=== PATIENT | male | born 1975 | race Caucasian/White ===

== ENCOUNTER 2017-12-03 08:51 | Observation (INO) ==
[2017-12-03] MEDS ORDERED: *HR* Promethazine 25 MG/ML VIAL IVP ONE ×2 (09:22→10:06)
[2017-12-03] MEDS ORDERED: *HR* FentaNYL (PF) 100 MCG/2 ML VIAL IVP ONE (09:22)
[2017-12-03] MEDS ORDERED: 0.9 % Sodium Chloride 1,000 ML IVC ONE (09:22)
--- NOTE | 2017-12-03 09:34 | Emergency Department Note ---
Disposition Clinical Impression: Pancreatitis Qualifiers: Chronicity: acute Pancreatitis type: unspecified pancreatitis type Acute pancreatitis complication: no infection or necrosis Qualified Code(s): K85.90 - Acute pancreatitis without necrosis or infection, unspecified Disposition: Admitted As Inpatient Condition: Fair Referrals: NONE,PCP [Primary Care Provider] - Time of Disposition: 09:34 General Adult HPI - General Chief complaint: ED Nausea/Vomiting/Diarrhea Stated complaint: n/v,abd pain Time Seen by Provider: 12/03/17 09:10 Source: patient Limitations: no limitations Nursing Notes Reviewed: Yes Vital Signs Reviewed: Yes - History of Present Illness Pain Scale: 4 - Related Data Previous Rx's Medication Instructions Recorded Promethazine [Phenergan] 12.5 mg PO Q8HR PRN 3 Days #9 12/03/17 tablet Allergies Allergy/AdvReac Type Severity Reaction Status Date / Time ondansetron Allergy Nausea Verified 12/03/17 00:27 Past Medical History - Past Medical History Medical history: Reports: hypertension, other Psychiatric history: Reports: anxiety, bipolar, depression, prior suicide attempt, schizophrenia - Social History Smoking Status: Current every day smoker Smokeless Tobacco Status: No Alcohol use: Reports: occasionally Drug use: Reports: marijuana Physical Exam - General Limitations: no limitations General appearance: alert Course - Reevaluation(s) Reevaluation #1: Attestation note I did independently examine and verified the physical examination findings evaluation workup and disposition of this patient. We had independent face-to- face examination and discussion. The patient was seen with the emergency medicine resident Dr. Noble Worrell I examined this patient and my medical decision-making was reviewed with the Resident Physician/LAW RESEARCHER/PA. I agree with the documented findings, disposition and treatment plan as described except to the extent set forth below. Briefly: 41-year-old male discharge for possibly 5 AM this morning after Dr. Harvey evaluated worked up and discharge this patient for acute pancreatitis. Patient does have one remaining kidney since he donated to her family member in the past. Lab works were essentially within normal limits and abdominal pelvic CT with radiology was no acute process. Patient's symptoms were controlled at that time and he was sent out to the lobby. He slept for a few hours and when he woke recurrence of epigastric pain nausea and vomiting. Patient will be rehydrated given IV Phenergan repeat BMP and that admitted for acute pancreatitis with intractable nausea and vomiting. Time: 09:32 Vital Signs Temperature 98.1 F 12/03/17 09:04 Pulse Rate 57 12/03/17 09:04 Respiratory Rate 18 12/03/17 09:04 Blood Pressure 190/110 12/03/17 09:04 O2 Sat by Pulse Oximetry 97 12/03/17 09:04 Temperature 98.1 F 12/03/17 09:04 Pulse Rate 57 12/03/17 09:04 Respiratory Rate 18 12/03/17 09:04 Blood Pressure 190/110 12/03/17 09:04 O2 Sat by Pulse Oximetry 97 12/03/17 09:04 Oxygen Delivery Oxygen Delivery Room Air Medical Decision Making - Lab Data Lab Results 12/03/17 Range/Units 09:14 POC Glucose 133 H (68-89) mg/dL
--- NOTE | 2017-12-03 09:39 | Emergency Department Note ---
Disposition Clinical Impression: Abdominal pain Qualifiers: Abdominal location: left lower quadrant Qualified Code(s): R10.32 - Left lower quadrant pain Nausea and vomiting Qualifiers: Vomiting type: unspecified Vomiting Intractability: non-intractable Qualified Code(s): R11.2 - Nausea with vomiting, unspecified Pancreatitis Qualifiers: Chronicity: chronic Pancreatitis type: unspecified pancreatitis type Qualified Code(s): K86.1 - Other chronic pancreatitis Disposition: Admitted As Inpatient Condition: Fair Time of Disposition: 11:02 Nausea/Vomiting/Diarrhea HPI - General Chief complaint: ED Nausea/Vomiting/Diarrhea Stated complaint: n/v,abd pain Time Seen by Provider: 12/03/17 09:10 Source: patient Limitations: no limitations Nursing Notes Reviewed: Yes Vital Signs Reviewed: Yes - History of Present Illness HPI Narrative: 41-year-old male complains of nausea and vomiting is one day ago. Patient stated he thinks he had pancreatitis and came in for evaluation. Patient was seen in the past 6 hours and had a complete workup to assess for pancreatitis which showed no elevation of his pancreatic enzymes and had a CT scan abdomen and pelvis was negative. Patient was discharged after control of his nausea and pain. Patient stayed in the waiting room over the past 6 hours awoke and symptoms persisted. Patient has sharp piercing intermittent abdominal pain along the left flank with radiation to his groin that when exacerbated causes him to vomit. Patient has nonbloody emesis. Patient has a history of nephrectomy back in 2002. Patient currently only has his left kidney. The patient is status post colectomy in 2002. Last abdominal surgery in June last year - Related Data Previous Rx's Medication Instructions Recorded Promethazine [Phenergan] 12.5 mg PO Q8HR PRN 3 Days #9 12/03/17 tablet Allergies Allergy/AdvReac Type Severity Reaction Status Date / Time ondansetron Allergy Nausea Verified 12/03/17 00:27 All systems ED: reviewed and negative except as stated. Review of Systems: As Per HPI Constitutional: Reports: chills, weakness. Denies: fever Gastrointestinal: Reports: abdominal pain, nausea, vomiting Endocrine: Reports: fatigue Past Medical History - Past Medical History Attestation: Yes The following information was validated with the patient. Source: patient, nursing notes reviewed Medical history: Reports: hypertension, other Psychiatric history: Reports: anxiety, bipolar, depression, prior suicide attempt, schizophrenia - Social History Smoking Status: Current every day smoker Smokeless Tobacco Status: No Alcohol use: Reports: occasionally Drug use: Reports: marijuana Physical Exam Vital Signs Temperature 98.1 F 12/03/17 09:04 Pulse Rate 57 12/03/17 09:04 Respiratory Rate 18 12/03/17 09:04 Blood Pressure 190/110 12/03/17 09:04 O2 Sat by Pulse Oximetry 97 12/03/17 09:04 Temperature 98.1 F 12/03/17 09:04 Pulse Rate 57 12/03/17 09:04 Respiratory Rate 18 12/03/17 09:04 Blood Pressure 190/110 12/03/17 09:04 O2 Sat by Pulse Oximetry 97 12/03/17 09:04 Oxygen Delivery Oxygen Delivery Room Air CONSTITUTIONAL: Alert and oriented X3, poorly nourished and in acute distress. Vital signs show hypertension at 190/110 HEAD: Normocephalic; atraumatic. EYES: PERRL, no scleral icterus. NOSE: The nose is normal in appearance without rhinorrhea RESP: Normal chest excursion with respiration; breath sounds clear and equal bilaterally; no wheezes, rhonchi, or rales CARD: Regular rhythm, without murmurs, rub or gallop ABD: Non-distended; tender in epigastric, left upper quadrant left flank to palpation. Palpation stimulates emesis Back: Left CVA tenderness to palpation SKIN: Normal for age and race; warm and dry; no apparent lesions - General Limitations: no limitations General appearance: alert Course - Reevaluation(s) Reevaluation #1: Patient states his nausea is still pretty strong. reordered Phenergan 12.5 mg IV Time: 10:04 - Consultations Consultation #1: Dr. Rolle the hospitalist has accepted patient for admission Time: 10:31 Vital Signs Temperature 98.1 F 12/03/17 09:04 Pulse Rate 57 12/03/17 09:04 Respiratory Rate 18 12/03/17 09:04 Blood Pressure 190/110 12/03/17 09:04 O2 Sat by Pulse Oximetry 97 12/03/17 09:04 Temperature 98.1 F 12/03/17 09:04 Pulse Rate 57 12/03/17 09:04 Respiratory Rate 18 12/03/17 09:04 Blood Pressure 190/110 12/03/17 09:04 O2 Sat by Pulse Oximetry 97 12/03/17 09:04 Oxygen Delivery Oxygen Delivery Room Air Nausea/Vomiting/Diarrhea - MDM Narrative Medical decision making narrative: Patient presents after outpatient failure for treatment of nausea and vomiting and abdominal pain that was evaluated for suspected pancreatitis. After a negative evaluation for pancreatitis patient was discharged but has recurrence of symptoms. Patient's abdominal pain is worsened current plan is to rehydrate , control nausea and pain, and admits for outpatient failure for suspected chronic pancreatitis. 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 Labs were redrawn for comparison. Patient was accepted for admission by hospitalist Dr. Rolle. - Lab Data Lab results reviewed: Yes I reviewed the patient's lab results. Lab results narrative: Short CBC 12/03/17 Range/Units 09:37 WBC 18.2 H (4.3-11.1) K/mcL Hgb 19.3 H (12.9-16.9) g/dL Hct 55.7 H (37.5-50.1) % Plt Count 218 (140-400) K/mcL Neutrophils # 15.9 H (1.6-8.9) K/mcL Result diagrams: 12/03/17 09:37 Lab Results 12/03/17 12/03/17 12/03/17 Range/Units 09:14 09:37 09:37 WBC 18.2 H (4.3-11.1) K/mcL RBC 6.24 H (4.19-5.50) M/mcL Hgb 19.3 H (12.9-16.9) g/dL Hct 55.7 H (37.5-50.1) % MCV 89.3 (83.0-100.0) fL MCH 30.9 (28.0-33.3) pg MCHC 34.6 (31.6-35.5) g/dL RDW 12.4 (11.5-14.5) % Plt Count 218 (140-400) K/mcL MPV 11.5 (9.4-12.4) fL Immature Gran % 0.7 (0-4) % Seg Neutrophils % 87.1 % Lymphocytes % 8.2 % Monocytes % 3.7 % Eosinophils % 0.1 % Basophils % 0.2 % Neutrophils # 15.9 H (1.6-8.9) K/mcL Lymphocytes # 1.5 (0.6-4.6) K/mcL Monocytes # 0.7 (0.0-1.3) K/mcL Eosinophils # 0.0 (0.0-0.6) K/mcL Basophils # 0.0 (0.0-0.2) K/mcL POC Glucose 133 H (68-89) mg/dL Specimen Rejected Hemolyzed - Radiology Data Radiology results reviewed: Yes I reviewed the patient's radiology results.
[2017-12-03 09:45] LABS: Basophils % 0.2 %; Eosinophils % 0.1 %; Hemoglobin 19.3 g/dL (12.9-16.9); Immature Granulocytes % 0.7 % (0-4); Lymphocytes # 1.5 K/mcL (0.6-4.6); Lymphocytes % 8.2 %; Mean Corpuscular HGB Conc 34.6 g/dL (31.6-35.5); Mean Corpuscular Hemoglobin 30.9 pg (28.0-33.3); Mean Corpuscular Volume 89.3 fL (83.0-100.0); Mean Platelet Volume 11.5 fL (9.4-12.4); Monocytes # 0.7 K/mcL (0.0-1.3); Monocytes % 3.7 %; Neutrophils # 15.9 K/mcL (1.6-8.9); Platelet Count 218 K/mcL (140-400); Red Blood Count 6.24 M/mcL (4.19-5.50); Red Cell Distribution Width 12.4 % (11.5-14.5); Segmented Neutrophils % 87.1 %
[2017-12-03 09:49] LABS: Hematocrit 55.7 % (37.5-50.1)
[2017-12-03 11:45] LABS: BUN/Creatinine Ratio 10 (6-26); Blood Urea Nitrogen 9 mg/dL (6-20); Calcium 9.2 mg/dL (8.6-10.3); Carbon Dioxide 22 mEq/L (23-29); Chloride 106 mEq/L (98-107); Glucose 135 mg/dL (70-105); Osmolality,Calculated 283 (280-300); Potassium 4.4 mEq/L (3.5-5.1); Sodium 136 mEq/L (136-145); eGFR For African Americans > 60 (> 60); eGFR For Non-African Americans > 60 (> 60)
[2017-12-03] MEDS: 0.9 % Sodium Chloride 1,000 ML IVC SCH (12:29)
--- NOTE | 2017-12-03 12:33 | Internal Med History&Physical ---
Date of Encounter: 12/03/17 Time of Encounter: 11:00 Assessment and Plan (1) Abdominal pain Current visit: Yes Status: Acute Patient complains of abdominal pain but no abnormal findings on abdominal CT and transaminases/lipase within normal limits Will continue to monitor Qualifiers: Abdominal location: unspecified location Qualified Code(s): R10.9 - Unspecified abdominal pain (2) Nausea and vomiting Current visit: Yes Status: Acute Will give patient antiemetics as needed Qualifiers: Vomiting type: unspecified Vomiting Intractability: non-intractable Qualified Code(s): R11.2 - Nausea with vomiting, unspecified (3) DVT prophylaxis Current visit: Yes Status: Acute Subcutaneous heparin Internal Medicine - H&P: HPI Chief complaint: Abdominal pain/nausea/vomiting Admitted From: Home Plans for Post Hospital Care: Home History of present illness: Patient is a 41-year-old male who presents to the ER on 12/03/17 due to abdominal pain and nausea/vomiting. Patient is a poor historian and does not want to participate in the history taking but does state that he has had nausea/vomiting and abdominal pain for last couple days. In the ER, CT abdomen did not show any acute findings and laboratory findings unremarkable. Patient was admitted to medical surgical floor for nausea and vomiting and abdominal pain. Past Med Surg Social Fam HX - Past Medical History Medical history: hypertension, other Psychiatric history: anxiety, bipolar, depression, prior suicide attempt, schizophrenia - Past Surgical History Surgical History: non-contributory - Social History Smoking Status: Current every day smoker Smokeless Tobacco Status: No Alcohol use: occasionally Drug use: marijuana Internal Medicine - H&P: Meds Promethazine [Phenergan] 12.5 mg PO Q8HR PRN 3 Days #9 tablet 12/03/17 [Rx] 3 Allergy/AdvReac Type Severity Reaction Status Date / Time ondansetron Allergy Nausea Verified 12/03/17 00:27 All Systems PM: A 10-system review of systems was performed and is negative for pertinent findings except as documented above in the HPI. - Constitutional Vitals: Temp Pulse Resp BP Pulse Ox 98.3 F 77 16 185/109 98 12/03/17 12:01 12/03/17 12:01 12/03/17 12:01 12/03/17 12:01 12/03/17 12:01 General appearance: Present: no acute distress - Eye Eye exam: Present: normal appearance - ENT ENT exam: Present: mucous membranes moist - Respiratory Respiratory exam: Present: CTAB. Absent: accessory muscle use, rales, rhonchi, wheezes - Cardiovascular Cardiovascular exam: Present: RRR, +S1, +S2. Absent: diastolic murmur, gallop, rubs, systolic murmur - GI/Abdominal GI/Abdominal exam: Present: normal bowel sounds, soft, no peritoneal signs. Absent: distended, tenderness - Extremities Exam Extremities exam: Absent: pedal edema - Neurological Exam Neurological exam: Present: no focal deficits - Psychiatric Psychiatric exam: Present: normal mood - Skin Skin exam: Present: normal color Internal Med - H&P Results - Labs CBC & Chem 7: 12/03/17 09:37 12/03/17 11:13 Labs: BMP 12/03/17 11:13 Sodium 136 Potassium 4.4 D Chloride 106 Carbon Dioxide 22 L BUN 9 Creatinine 0.89 Glucose 135 H Calcium 9.2
[2017-12-03] MEDS ORDERED: Naloxone 0.4 MG/ML INJ IVP PRN (12:57)
[2017-12-03] MEDS ORDERED: Ketorolac 15 MG/ML VIAL IVP ONE (15:46)
[2017-12-03] MEDS: MetroNIDAZOLE 500 MG/100 ML 500 MG/100 ML BAG IVPB SCH (15:51)
[2017-12-03] MEDS: *HR* Promethazine 25 MG/ML VIAL IVP PRN (16:55)
[2017-12-03] MEDS ORDERED: Ondansetron 4 MG/2 ML VIAL IVP ONE (20:24)
[2017-12-03] MEDS ORDERED: Acetaminophen IV 500 MG/50 ML INFUS..BTL IVPB ONE (20:33)
[2017-12-04] MEDS ORDERED: Ketorolac 15 MG/ML VIAL IVP PRN (01:02)
[2017-12-04] MEDS: MetroNIDAZOLE 500 MG/100 ML 500 MG/100 ML BAG IVPB SCH ×3 (01:27→23:14)
[2017-12-04 01:59] LABS: Amphetamine Screen,Urine Negative ng/mL (Cutoff=1000); Barbiturate Screen,Urine Negative ng/mL (Cutoff=200); Benzodiazepines Screen,Urine Negative ng/mL (Cutoff=200); Cannabinoid Screen,Urine Positive ng/mL (Cutoff = 50); Opiate Screen,Urine Negative ng/mL (Cutoff=300); Phencyclidine Screen,Urine Negative ng/mL (Cutoff=25)
[2017-12-04 02:58] LABS: Cocaine Screen,Urine Negative ng/mL (Cutoff= 300)
[2017-12-04 06:13] LABS: Basophils % 0.2 %; Immature Granulocytes % 0.9 % (0-4)
[2017-12-04 06:14] LABS: Basophils # 0.1 K/mcL (0.0-0.2); Eosinophils % 0.1 %; Hemoglobin 19.5 g/dL (12.9-16.9); Lymphocytes # 2.5 K/mcL (0.6-4.6); Lymphocytes % 7.9 %; Mean Corpuscular HGB Conc 34.8 g/dL (31.6-35.5); Mean Corpuscular Hemoglobin 30.8 pg (28.0-33.3); Mean Corpuscular Volume 88.5 fL (83.0-100.0); Mean Platelet Volume 11.3 fL (9.4-12.4); Monocytes # 2.5 K/mcL (0.0-1.3); Monocytes % 7.8 %; Neutrophils # 26.7 K/mcL (1.6-8.9); Platelet Count 228 K/mcL (140-400); Red Blood Count 6.33 M/mcL (4.19-5.50); Red Cell Distribution Width 13.3 % (11.5-14.5); Segmented Neutrophils % 83.1 %
[2017-12-04 06:31] LABS: Platelet Estimate Normal (Normal)
[2017-12-04 06:39] LABS: BUN/Creatinine Ratio 13 (6-26); Blood Urea Nitrogen 15 mg/dL (6-20); Calcium 9.5 mg/dL (8.6-10.3); Carbon Dioxide 26 mEq/L (23-29); Chloride 100 mEq/L (98-107); Glucose 148 mg/dL (70-105); Osmolality,Calculated 292 (280-300); Potassium 3.1 mEq/L (3.5-5.1); Sodium 139 mEq/L (136-145); eGFR For African Americans > 60 (> 60); eGFR For Non-African Americans > 60 (> 60)
[2017-12-04] MEDS: OXYCODONE Oral CONC 10 MG/0.5 ML ORAL.SYG SL PRN ×2 (12:26→21:56)
[2017-12-04] MEDS: 0.9 % Sodium Chloride 1,000 ML IVC SCH (13:41)
--- NOTE | 2017-12-04 16:56 | Internal Med Progress Note ---
Date of Encounter: 12/04/17 Time of Encounter: 17:03 - Assessment and plan (1) Pancreatitis Current Visit: Yes Status: Acute Assessment and plan: possible. Presented with abdominal pain and nausea vomiting. Was evaluated in the ED and discharged home however he returned proximal Lasix hour later with persistent symptoms. Reports history of pancreatitis in the past and symptoms consistent with previous episodes of pancreatitis. LFTs minimally elevated. Lipase, amylase normal. Abdominal CT with no acute process identified. Keep NPO , IV fluids, pain control. ABD US pending Qualifiers: Chronicity: chronic Pancreatitis type: alcohol induced Qualified Code(s) : K86.0 - Alcohol-induced chronic pancreatitis (2) Leukocytosis Current Visit: Yes Status: Acute Assessment and plan: WBC 32K, previously 18K. no obvious infectious source. UA not indicative of UTI , abdominal CT unremarkable. Chest x-ray without evidence of pneumonia. lactic acid normal, no hypotension, intermittent tachycardia. Possibly reactive with nausea and vomiting. IV Cipro and Flagyl started with concern for intra-abdominal source as the patient reported nausea, vomiting and diarrhea. Broaden antibiotic to Vanco, Zosyn. Blood cultures pending. Qualifiers: Leukocytosis type: bandemia Qualified Code(s): D72.825 - Bandemia (3) Abdominal pain Current Visit: Yes Status: Acute Assessment and plan: presented with abdominal pain as noted above but no abnormal findings on abdominal CT. Transaminases/lipase within normal limits. With c/o sharp, piercing ABD pain on 12/04/17 exam, also noted to be tachycardic. Chest/ABD CTA with run off pending Qualifiers: Abdominal location: unspecified location Qualified Code(s): R10.9 - Unspecified abdominal pain (4) Nausea and vomiting Current Visit: Yes Status: Acute Assessment and plan: with associated abdominal pain. Keep NPO, PRN antiemetics. Qualifiers: Vomiting type: unspecified Vomiting Intractability: non-intractable Qualified Code(s): R11.2 - Nausea with vomiting, unspecified (5) DVT prophylaxis Current Visit: Yes Status: Acute Assessment and plan: heparin - Subjective Interval history: Seen and examined at bedside, patient is new to me. Information obtained from chart review and patient report. Appears extremely uncomfortable on exam. Complaining of 10 out of 10 abdominal pain located to left upper quadrant and radiates to left groin. Still nauseated but no further emesis or loose stool. - Constitutional Vitals: Temp Pulse Resp BP Pulse Ox 97.9 F 108 16 127/89 93 12/04/17 15:22 12/04/17 15:22 12/04/17 15:22 12/04/17 15:22 12/04/17 15:22 General appearance: Present: mild distress, A&O X 3, no acute distress - Head Head exam: Present: atraumatic, normocephalic - Eye Eye exam: Present: PERRL, conjuntiva pink, sclera anicteric Pupils: Present: PERRL - Neck Neck exam general surgery: Present: supple, trachea midline. Absent: lymphadenopathy - Respiratory Respiratory exam: Present: CTAB. Absent: accessory muscle use, rales, rhonchi, wheezes - Cardiovascular Cardiovascular exam: Present: RRR, +S1, +S2. Absent: diastolic murmur, gallop, rubs, systolic murmur - GI/Abdominal GI/Abdominal exam: Present: normal bowel sounds, soft, tenderness, no peritoneal signs. Absent: distended - Extremities Exam Extremities exam: Present: warm, radial pulses palpable and symmetrical. Absent : calf tenderness, cyanotic, pedal edema - Neurological Exam Neurological exam: Present: CN II-XII intact, oriented X3, no focal deficits. Absent: pronater drift, facial droop, speech deficit - Skin Skin exam: Present: dry, intact Internal Medicine: Result - Labs CBC & Chem 7: 12/04/17 05:15 12/04/17 05:15 Labs: Short CBC 12/04/17 Range/Units 05:15 WBC 32.1 H* D (4.3-11.1) K/mcL Hgb 19.5 H (12.9-16.9) g/dL Hct 56.0 H (37.5-50.1) % Plt Count 228 (140-400) K/mcL Neutrophils # 26.7 H (1.6-8.9) K/mcL BMP 12/04/17 05:15 Sodium 139 Potassium 3.1 L D Chloride 100 Carbon Dioxide 26 BUN 15 Creatinine 1.15 Glucose 148 H Calcium 9.5 Consult Discharge Plan - Plan Referrals: NONE,PCP [Primary Care Provider] -
[2017-12-04] MEDS ORDERED: Potassium Chloride 40 MEQ, Lidocaine 1% 2 ML in D5% in Water 500 ML IVPB ONE (17:04)
[2017-12-04] MEDS: Piperacillin/Tazobactam 3.375 GM in 0.9 % Sodium Chloride Mini Bag 100 ML IVPB SCH (17:24)
[2017-12-04 18:27] LABS: Adenovirus Not Detected (Not Detect); Bordetella Pertussis Not Detected (Not Detect); Chlamydophila pneumoniae Not Detected (Not Detect); Coronavirus 229E Not Detected (Not Detect); Coronavirus HKU1 Not Detected (Not Detect); Coronavirus NL63 Not Detected (Not Detect); Coronavirus OC43 Not Detected (Not Detect); Human Metapneumovirus Not Detected (Not Detect); Human Rhinovirus/Enterovirus Not Detected (Not Detect); Influenza A Subtype 2009 H1 Not Detected (Not Detect); Influenza A Untypeable Not Detected (Not Detect); Influenza B Not Detected (Not Detect); Mycoplasma pneumoniae Not Detected (Not Detect); Parainfluenza Virus 1 Not Detected (Not Detect); Parainfluenza Virus 2 Not Detected (Not Detect); Parainfluenza Virus 3 Not Detected (Not Detect); Parainfluenza Virus 4 Not Detected (Not Detect); Respiratory Syncytial Virus Not Detected (Not Detect)
[2017-12-04] MEDS ORDERED: Potassium Chloride Elixir 20 MEQ/15 ML UDC PO ONE (20:33)
[2017-12-04] MEDS: *HR* Heparin 5,000 UNIT/ML VIAL SQ SCH (21:44)
[2017-12-04] MEDS: *HR* Promethazine 25 MG/ML VIAL IVP PRN (23:26)
[2017-12-04] MEDS: *HR* FentaNYL (PF) 100 MCG/2 ML VIAL IVP PRN (23:38)
[2017-12-05] MEDS: Piperacillin/Tazobactam 3.375 GM in 0.9 % Sodium Chloride Mini Bag 100 ML IVPB SCH ×3 (01:41→17:38)
[2017-12-05] MEDS: *HR* FentaNYL (PF) 100 MCG/2 ML VIAL IVP PRN (02:21)
[2017-12-05 04:43] LABS: Mean Corpuscular HGB Conc 34.1 g/dL (31.6-35.5)
[2017-12-05 04:44] LABS: Hematocrit 53.6 % (37.5-50.1); Hemoglobin 18.3 g/dL (12.9-16.9); Mean Corpuscular Hemoglobin 30.7 pg (28.0-33.3); Mean Corpuscular Volume 89.9 fL (83.0-100.0); Mean Platelet Volume 11.3 fL (9.4-12.4); Platelet Count 181 K/mcL (140-400); Red Blood Count 5.96 M/mcL (4.19-5.50); Red Cell Distribution Width 12.8 % (11.5-14.5)
[2017-12-05 05:41] LABS: BUN/Creatinine Ratio 14 (6-26); Blood Urea Nitrogen 14 mg/dL (6-20); Calcium 9.2 mg/dL (8.6-10.3); Carbon Dioxide 23 mEq/L (23-29); Chloride 106 mEq/L (98-107); Glucose 135 mg/dL (70-105); Osmolality,Calculated 285 (280-300); Sodium 136 mEq/L (136-145); Triglycerides 85 mg/dL (< 150); eGFR For African Americans > 60 (> 60); eGFR For Non-African Americans > 60 (> 60)
[2017-12-05] MEDS: 0.9 % Sodium Chloride 1,000 ML IVC SCH ×2 (06:25→06:26)
[2017-12-05] MEDS: *HR* Heparin 5,000 UNIT/ML VIAL SQ SCH ×3 (08:49→21:44)
[2017-12-05] MEDS: OXYCODONE Oral CONC 10 MG/0.5 ML ORAL.SYG SL PRN ×2 (12:06→20:02)
--- NOTE | 2017-12-05 12:23 | Event Note ---
Date of Encounter: 12/04/17 Time of Encounter: 20:30 Alerted by patient's nurse that patient was supposed to be receiving IV potassium 40 mEq w/lidocaine and that pt. was refusing to continue w/infusion d/ t extreme pain and burning in arm from potassium. Pt. admittted w/possible pancreatitis and was NPO. Pt. reported he was not nauseous or vomiting, so PO Potassium liquid 40 mEq ordered. and administered. Alerted by nurse at 23:06 of critical lab result of 0.04 troponin. EKG done which showed sinus rhythm with short TX interval and right atrial enlargement. Ordered d-dimer also returned at 3233. CT of chest done earlier in the day which showed no abnormality or suspicion of PE. Bilateral Dopplers of patient's LEs ordered. Went to see pt. who was reporting pain in his back and chest. Echocardiogram ordered. Order to continue trending trops given. Cardiac monitoring ordered. Stat EKG showed sinus rhythm. Second trop 0.04. Hydralazine IVP 10 mg Q6HR PRN for SBP >180 and/ or DBP >110 ordered. SL oxycodone ordered for pain. Completed echocardiogram shows LVEF of 55-60 percent, no pulmonary hypertension, normal left ventricular diastolic function, no segmental dysfunction, normal LV chamber size and wall thickness and function, and no significant valvular dysfunction. Dopplers of LEs negative for DVTs. Will continue to monitor pt. closely and keep NPO.
--- NOTE | 2017-12-05 12:46 | Electrocardiograph Report ---
[address] [address] Test Date: 2017-12-04 Pat Name: Mykel Patel Department: 113 Room: 3B46 Gender: M Combiner: TM : 1975 Requested By: Dontae Retana Order Number: [id number] Reading MD: Eddie Malone Measurements Intervals [place] Rate: 75 P: 79 DC: 116 QRS: 86 QRSD: 88 T: 62 QT: 373 QTc: 402 Interpretive Statements SINUS RHYTHM WITH SHORT DC INTERVAL RIGHT ATRIAL ENLARGEMENT Electronically Signed On 12-05-2017 12:44:03 EDT by Eddie Malone
--- NOTE | 2017-12-05 13:36 | Gastroenterology Consult Note ---
<Warren Ruiz - Last Filed: 12/05/17 15:15> Date of Encounter: 12/05/17 Time of Encounter: 13:29 - Assessment and plan (1) Pancreatitis Current Visit: Yes Status: Chronic Assessment and plan: CTA revealed multifocal wall thickening in the esophagus with multiple adjacent lymph nodes and multifocal ill-defined soft tissue along its margins. Although this could represent sequela of esophagitis and reactive lymph nodes, a tumor should be considered as well. Direct visualization is recommended. Ultrasound revealed periportal and pericholecystic edema, which may be related to underlying liver disease or pancreatitis Repeta LFTs pending NPO diet Continue IVFs, anti-emetics and pain medication Qualifiers: Chronicity: chronic Pancreatitis type: unspecified pancreatitis type Qualified Code(s): K86.1 - Other chronic pancreatitis (2) Leukocytosis Current Visit: Yes Status: Acute Assessment and plan: Patient with history of colitis oresenting with leukocytosis and abd pain GI panel negative Blood cultures show no growth to date Empiric Cipro and Flagyl were changed to Vanc and Zosyn Qualifiers: Leukocytosis type: bandemia Qualified Code(s): D72.825 - Bandemia (3) Hepatitis C Current Visit: No Status: Chronic Assessment and plan: Fibrosis-4 score 1.07 points Fibrosis Stage: 0-1 FIB-4 scores <1.45 are 81% sensitive (NPV 90%) to rule out advanced fibrosis. Patient reports occasional alcohol and drug use Continue to monitor Qualifiers: Viral hepatitis chronicity: chronic Hepatic coma status: without hepatic coma Qualified Code(s): B18.2 - Chronic viral hepatitis C - Time Spent With Patient Total time spent is greater than 50% in coordination of care (as documented) at patient's floor/unit and/or counseling patient: GI History of Present Illness - Data of Consult Patient: new to practice Consult date: 12/05/17 Requesting Physician: Meera Gloria CNP - Consult Narrative Reason for consult: Abd pain, possible GI bleed History of present illness: Mr. 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 He admits to chronic marijuana use, improvement in symptoms following hot shower, and anorexia for the past 3 days. Nursing reports patient drank red Oxycodone suspension yesterday which may have contributed to his red emesis last night. Of note, patient reports multiple episodes of similar symptoms in the past related to chronic pancreatitis and reports usually being evaluated at [facility]. He reports most recent EGD in 2017 revealed gastric and duodenal ulcers and colonoscopy revealed colitis. Patient has been out of his Bentyl, Phenergan, and PPI for the past 3 months since getting out of [facility]. He denies current blood thinner use, fever, chills, CP, SOB, diarrhea, melena, weight loss, recent illness, or other sick contacts. In the ED, CTA revealed multifocal wall thickening in the esophagus with multiple adjacent lymph nodes and multifocal ill-defined soft tissue along its margins. Although this could represent sequela of esophagitis and reactive lymph nodes, a tumor should be considered as well. Direct visualization is recommended. Ultrasound revealed periportal and pericholecystic edema, which may be related to underlying liver disease or pancreatitis Colonoscopy: 2017: Colitis EGD: 2017: Gastric and duodenal ulcers Past Med Surg Social Fam HX - Past Medical History Medical history: hypertension, other Psychiatric history: anxiety, bipolar, depression, prior suicide attempt, schizophrenia - Past Surgical History Surgical History: colectomy, other (right nephrectomy) - Social History Smoking Status: Current every day smoker Smokeless Tobacco Status: No Alcohol use: occasionally (twice per year) Drug use: marijuana Current living situation: Homeless Activity Level: Independent ambulation Recent Out of Country Travel Within the Last 8 Weeks: No - Family History Mother Hx Family Cardiac Disorders: Yes Hx Family Cancer: Yes (Breast) Father Hx Family Cardiac Disorders: Yes Hx Family Endocrine Disorder: Yes - Gastrointestinal Gastrointestinal: Present: abdominal pain, change in bowel habits, coffee ground emesis, hematemesis, nausea, vomiting. Absent: bloating, constipation, diarrhea, hematochezia, melena - Constitutional Constitutional: anorexia, no fatigue, no fever(s), no weight gain, no weight loss - EENT Nose, mouth and throat: Absent: dysphagia, sore throat - Cardiovascular Cardiovascular ROS: Absent: chest pain, irregular heart rhythm, palpitations - Respiratory Respiratory IM: Absent: cough, dyspnea, hemoptysis - Genitourinary Genitourinary: Absent: change in color, Urinary frequency - Neurological ROS Neurological GI: Absent: confusion, dizziness, headache(s), weakness - Hematologic/Lymphatic Hematologic/Lymphatic pediatric: Present: as per HPI. Absent: easy bleeding - Musculoskeletal Musculoskeletal ROS GI: Absent: back pain, joint swelling - Integumentary Integumentary GI: Absent: jaundice, pruritis, rash - Psychiatric ROS Psychiatric GI: Present: anxiety, depression - Endocrine Endocrine IM: Present: fatigue. Absent: cold intolerance, heat intolerance - Constitutional Vitals: Temp Pulse Resp BP Pulse Ox 98.7 F 70 17 162/89 96 12/05/17 11:45 12/05/17 11:45 12/05/17 11:45 12/05/17 11:45 12/05/17 11:45 General appearance: Present: cooperative, disheveled, A&O X 3, no acute distress , answers questions appropriately - Head Head exam: Present: atraumatic, normocephalic - Eye Eye exam: Present: normal appearance, sclera anicteric - ENT ENT exam: Present: mucous membranes dry, normal oropharynx - Neck Neck exam general surgery: Present: normal inspection, trachea midline - Respiratory Respiratory exam: Present: CTAB. Absent: rhonchi - Cardiovascular Cardiovascular exam: Present: RRR, +S1, +S2 - GI/Abdominal GI/Abdominal exam: Present: normal bowel sounds, soft, tenderness (epigastric), no peritoneal signs. Absent: distended, guarding - Expanded GI/Abdominal Exam GI/Abdominal exam expanded: Absent: Bowen's sign, Rovsing's sign, tenderness at McBurney's Point - Rectal Rectal exam: Present: deferred - Extremities Exam Extremities exam: Present: warm. Absent: pedal edema - Neurological Exam Neurological exam: Present: oriented X3, no focal deficits - Psychiatric Psychiatric exam: Present: anxious, normal affect. Absent: depressed - Skin Skin exam: Present: dry, intact, normal color, warm Results - Labs CBC & Chem 7: 12/05/17 04:12 12/05/17 04:12 Labs: Last Result Calcium 9.2 mg/dL (8.6-10.3) 12/05/17 04:12 Troponin I 0.04 ng/mL (< 0.04) H* 12/05/17 04:12 Triglycerides 85 mg/dL (< 150) 12/05/17 04:12 Urine Opiates Screen Negative ng/mL (Aurvfh=919) 12/04/17 00:00 Entire Visit Hgb 18.3 g/dL (12.9-16.9) H 12/05/17 04:12 Hct 53.6 % (37.5-50.1) H 12/05/17 04:12 - ABG ABG results: PT/INR, D-dimer D-Dimer 3233 ng/mLFEU (0-500) H 12/04/17 22:20 - Impressions Impressions Abdomen/Pelvis CTA 12/04/17 17:02 IMPRESSION: No acute arterial abnormality in the chest abdomen or pelvis. Specifically, there is no aneurysm or dissection. Multifocal atherosclerotic change in the iliac arteries Multifocal wall thickening in the esophagus is noted with multiple adjacent lymph nodes and multifocal ill-defined soft tissue along its margins. Although this could represent sequela of esophagitis and reactive lymph nodes, a tumor should be considered as well. Direct visualization is recommended Left upper lobe lung nodule. RECOMMENDATIONS: Fleischner Society guidelines for follow-up and management of incidentally detected pulmonary nodules: Single Solid Nodule: Nodule size less than 6 mm In a low-risk patient, no routine follow-up. In a high-risk patient, optional CT at 12 months. Nodule size equals 6-8 mm In a low-risk patient, CT at 6-12 months, then consider CT at 18-24 months. In a high-risk patient, CT at 6-12 months, then CT at 18-24 months. Nodule size greater than 8 mm In a low-risk patient, consider CT at 3 months, PET/CT, or tissue sampling. In a high-risk patient, consider CT at 3 months, PET/CT, or tissue sampling. Multiple Solid Nodules: Nodule size less than 6 mm In a low-risk patient, no routine follow-up. In a high-risk patient, optional CT at 12 months. Nodule size equals 6-8 mm In a low-risk patient, CT at 3-6 months, then consider CT at 18-24 months. In a high-risk patient, CT at 3-6 months, then CT at 18-24 months. Nodule size greater than 8 mm In a low-risk patient, CT at 3-6 months, then consider CT at 18-24 months. In a high-risk patient, CT at 3-6 months, then CT at 18-24 months. - Low risk patients include individuals with minimal or absent history of smoking and other known risk factors. - High risk patients include individuals with a history or smoking or known risk factors. Radiology 2017 http://pubs.rsna.org/doi/full/10.1148/radiol.1188652019 D/ / Moiz Sutton / Moiz Sutton Interpreting Provider: Moiz Sutton Chest CTA 12/04/17 17:02 IMPRESSION: No acute arterial abnormality in the chest abdomen or pelvis. Specifically, there is no aneurysm or dissection. Multifocal atherosclerotic change in the iliac arteries Multifocal wall thickening in the esophagus is noted with multiple adjacent lymph nodes and multifocal ill-defined soft tissue along its margins. Although this could represent sequela of esophagitis and reactive lymph nodes, a tumor should be considered as well. Direct visualization is recommended Left upper lobe lung nodule. RECOMMENDATIONS: Fleischner Society guidelines for follow-up and management of incidentally detected pulmonary nodules: Single Solid Nodule: Nodule size less than 6 mm In a low-risk patient, no routine follow-up. In a high-risk patient, optional CT at 12 months. Nodule size equals 6-8 mm In a low-risk patient, CT at 6-12 months, then consider CT at 18-24 months. In a high-risk patient, CT at 6-12 months, then CT at 18-24 months. Nodule size greater than 8 mm In a low-risk patient, consider CT at 3 months, PET/CT, or tissue sampling. In a high-risk patient, consider CT at 3 months, PET/CT, or tissue sampling. Multiple Solid Nodules: Nodule size less than 6 mm In a low-risk patient, no routine follow-up. In a high-risk patient, optional CT at 12 months. Nodule size equals 6-8 mm In a low-risk patient, CT at 3-6 months, then consider CT at 18-24 months. In a high-risk patient, CT at 3-6 months, then CT at 18-24 months. Nodule size greater than 8 mm In a low-risk patient, CT at 3-6 months, then consider CT at 18-24 months. In a high-risk patient, CT at 3-6 months, then CT at 18-24 months. - Low risk patients include individuals with minimal or absent history of smoking and other known risk factors. - High risk patients include individuals with a history or smoking or known risk factors. Radiology 2017 http://pubs.rsna.org/doi/full/10.1148/radiol.4766273374 D/ / Moiz Sutton / Moiz Sutton Interpreting Provider: Moiz Sutton Abdomen Ultrasound 12/05/17 10:00 IMPRESSION: Periportal and pericholecystic edema, which may be related to underlying liver disease or pancreatitis. D/ / 12/05/2017 10:47:05 Aracelis Emanuel MD / Cony Hopper Interpreting Provider: Aracelis Emanuel MD Echocardiogram 12/05/17 23:31 Impressions: LVEF 55-60%. No pulmonary hypertension. Normal left ventricular diastolic function. No segmental dysfunction. Normal LV chamber size, wall thickness and function. No significant valvular dysfunction. Left Ventricular Wall Motion: Rest Echo Findings All wall segments showed normal motion. Findings: Study Quality * Technically adequate exam. Right Ventricle * Normal right ventricular structure and function. Left Atrium * Normal left atrial size. Right Atrium * Normal right atrial size. Aortic Valve * Trileaflet aortic valve with normal function. Mitral Valve * Normal mitral valve structure and function. * Hypertrophied papillary muscle Interatrial Septum * No evidence of PFO by color Doppler. Aorta * Normally sized aortic root. Pericardium * The pericardium appears normal. ECG Findings * Normal sinus rhythm. Tricuspid Valve * Trace tricuspid regurgitation. * No tricuspid stenosis. * Estimated RVSP is 32 mmHg. * No pulmonary hypertension. Pulmonic Valve * No pulmonic regurgitation. * No pulmonic stenosis. Left Ventricle * LVEF 55-60%. * Normal left ventricular diastolic function. * No segmental dysfunction. * Normal LV chamber size, wall thickness and function. IVC * Normal IVC dimensions and inspiratory collapse. Consult Discharge Plan - Plan Referrals: NONE,PCP [Primary Care Provider] - <Shiva Saunders - Last Filed: 12/05/17 16:00> Date of Encounter: 12/05/17 - Time Spent With Patient Total time spent is greater than 50% in coordination of care (as documented) at patient's floor/unit and/or counseling patient: GI History of Present Illness - Data of Consult Requesting Physician: Meera Gloria CNP - Consult Narrative History of present illness: Mr. Patel is a 41 year old male - Constitutional Vitals: Temp Pulse Resp BP Pulse Ox 98.7 F 70 17 162/89 96 12/05/17 11:45 12/05/17 11:45 12/05/17 11:45 12/05/17 11:45 12/05/17 11:45 Results - Labs CBC & Chem 7: 12/05/17 04:12 12/05/17 04:12 Labs: Last Result Calcium 9.2 mg/dL (8.6-10.3) 12/05/17 04:12 Troponin I 0.04 ng/mL (< 0.04) H* 12/05/17 04:12 Triglycerides 85 mg/dL (< 150) 12/05/17 04:12 Urine Opiates Screen Negative ng/mL (Klhydv=938) 12/04/17 00:00 Entire Visit Hgb 18.3 g/dL (12.9-16.9) H 12/05/17 04:12 Hct 53.6 % (37.5-50.1) H 12/05/17 04:12 Total Bilirubin 1.3 mg/dL (0.3-1.0) H 12/05/17 15:07 AST 19 Units/L (13-39) 12/05/17 15:07 ALT 34 Units/L (7-52) 12/05/17 15:07 Amylase 78 Units/L (29-103) 12/05/17 15:07 Lipase 120 Units/L (11-82) H 12/05/17 15:07 - ABG ABG results: PT/INR, D-dimer D-Dimer 3233 ng/mLFEU (0-500) H 12/04/17 22:20 - Impressions Impressions Abdomen/Pelvis CTA 12/04/17 17:02 IMPRESSION: No acute arterial abnormality in the chest abdomen or pelvis. Specifically, there is no aneurysm or dissection. Multifocal atherosclerotic change in the iliac arteries Multifocal wall thickening in the esophagus is noted with multiple adjacent lymph nodes and multifocal ill-defined soft tissue along its margins. Although this could represent sequela of esophagitis and reactive lymph nodes, a tumor should be considered as well. Direct visualization is recommended Left upper lobe lung nodule. RECOMMENDATIONS: Fleischner Society guidelines for follow-up and management of incidentally detected pulmonary nodules: Single Solid Nodule: Nodule size less than 6 mm In a low-risk patient, no routine follow-up. In a high-risk patient, optional CT at 12 months. Nodule size equals 6-8 mm In a low-risk patient, CT at 6-12 months, then consider CT at 18-24 months. In a high-risk patient, CT at 6-12 months, then CT at 18-24 months. Nodule size greater than 8 mm In a low-risk patient, consider CT at 3 months, PET/CT, or tissue sampling. In a high-risk patient, consider CT at 3 months, PET/CT, or tissue sampling. Multiple Solid Nodules: Nodule size less than 6 mm In a low-risk patient, no routine follow-up. In a high-risk patient, optional CT at 12 months. Nodule size equals 6-8 mm In a low-risk patient, CT at 3-6 months, then consider CT at 18-24 months. In a high-risk patient, CT at 3-6 months, then CT at 18-24 months. Nodule size greater than 8 mm In a low-risk patient, CT at 3-6 months, then consider CT at 18-24 months. In a high-risk patient, CT at 3-6 months, then CT at 18-24 months. - Low risk patients include individuals with minimal or absent history of smoking and other known risk factors. - High risk patients include individuals with a history or smoking or known risk factors. Radiology 2017 http://pubs.rsna.org/doi/full/10.1148/radiol.6684041685 D/ / Moiz Sutton / Moiz Sutton Interpreting Provider: Moiz Sutton Chest CTA 12/04/17 17:02 IMPRESSION: No acute arterial abnormality in the chest abdomen or pelvis. Specifically, there is no aneurysm or dissection. Multifocal atherosclerotic change in the iliac arteries Multifocal wall thickening in the esophagus is noted with multiple adjacent lymph nodes and multifocal ill-defined soft tissue along its margins. Although this could represent sequela of esophagitis and reactive lymph nodes, a tumor should be considered as well. Direct visualization is recommended Left upper lobe lung nodule. RECOMMENDATIONS: Fleischner Society guidelines for follow-up and management of incidentally detected pulmonary nodules: Single Solid Nodule: Nodule size less than 6 mm In a low-risk patient, no routine follow-up. In a high-risk patient, optional CT at 12 months. Nodule size equals 6-8 mm In a low-risk patient, CT at 6-12 months, then consider CT at 18-24 months. In a high-risk patient, CT at 6-12 months, then CT at 18-24 months. Nodule size greater than 8 mm In a low-risk patient, consider CT at 3 months, PET/CT, or tissue sampling. In a high-risk patient, consider CT at 3 months, PET/CT, or tissue sampling. Multiple Solid Nodules: Nodule size less than 6 mm In a low-risk patient, no routine follow-up. In a high-risk patient, optional CT at 12 months. Nodule size equals 6-8 mm In a low-risk patient, CT at 3-6 months, then consider CT at 18-24 months. In a high-risk patient, CT at 3-6 months, then CT at 18-24 months. Nodule size greater than 8 mm In a low-risk patient, CT at 3-6 months, then consider CT at 18-24 months. In a high-risk patient, CT at 3-6 months, then CT at 18-24 months. - Low risk patients include individuals with minimal or absent history of smoking and other known risk factors. - High risk patients include individuals with a history or smoking or known risk factors. Radiology 2017 http://pubs.rsna.org/doi/full/10.1148/radiol.1575003569 D/ / Moiz Sutton / Moiz Sutton Interpreting Provider: Moiz Sutton Abdomen Ultrasound 12/05/17 10:00 IMPRESSION: Periportal and pericholecystic edema, which may be related to underlying liver disease or pancreatitis. D/ / 12/05/2017 10:47:05 Aracelis Emanuel MD / Cony Hopper Interpreting Provider: Aracelis Emanuel MD Echocardiogram 12/05/17 23:31 Impressions: LVEF 55-60%. No pulmonary hypertension. Normal left ventricular diastolic function. No segmental dysfunction. Normal LV chamber size, wall thickness and function. No significant valvular dysfunction. Left Ventricular Wall Motion: Rest Echo Findings All wall segments showed normal motion. Findings: Study Quality * Technically adequate exam. Right Ventricle * Normal right ventricular structure and function. Left Atrium * Normal left atrial size. Right Atrium * Normal right atrial size. Aortic Valve * Trileaflet aortic valve with normal function. Mitral Valve * Normal mitral valve structure and function. * Hypertrophied papillary muscle Interatrial Septum * No evidence of PFO by color Doppler. Aorta * Normally sized aortic root. Pericardium * The pericardium appears normal. ECG Findings * Normal sinus rhythm. Tricuspid Valve * Trace tricuspid regurgitation. * No tricuspid stenosis. * Estimated RVSP is 32 mmHg. * No pulmonary hypertension. Pulmonic Valve * No pulmonic regurgitation. * No pulmonic stenosis. Left Ventricle * LVEF 55-60%. * Normal left ventricular diastolic function. * No segmental dysfunction. * Normal LV chamber size, wall thickness and function. IVC * Normal IVC dimensions and inspiratory collapse. - Attending Attestation CTA revealed multifocal wall thickening in the esophagus with multiple adjacent lymph nodes and multifocal ill-defined soft tissue along its margins. Although this could represent sequela of esophagitis and reactive lymph nodes certainly one needs to exclude esophageal neoplasm. Plan EGD. Further recommendations to citlaly. Recommend MRCP to visualize pancreas. I examined this patient and my medical decision-making was reviewed with the Resident Physician. I agree with the documented findings, disposition and treatment plan as described except to the extent set forth below.
[2017-12-05 15:41] LABS: Albumin 4.1 g/dL (3.5-5.7); Albumin/Globulin Ratio 1.6 (1.1-2.2); Bilirubin,Direct 0.3 mg/dL (0.0-0.2); Bilirubin,Total 1.3 mg/dL (0.3-1.0); Globulin 2.5 g/dL (2.4-3.5); Total Protein 6.6 g/dL (6.4-8.9)
--- NOTE | 2017-12-05 15:41 | Internal Med Progress Note ---
Date of Encounter: 12/05/17 Time of Encounter: 12:30 - Assessment and plan (1) Abdominal pain Current Visit: Yes Status: Acute Assessment and plan: 1 presently no abdominal pain-right upper quadrant ultrasound. PeriPortal and pericholecystic edema which may be related to underlying liver disease or pancreatitis CTA of ABD/pelvis Multifocal wall thickening in the esophagus is noted with multiple adjacent lymph nodes and multifocal ill-defined soft tissue along its margins. Although this could represent sequela of esophagitis and reactive lymph nodes, a tumor should be considered as well We will continue nothing by mouth status Has been consulted Continue with pain medications as well as antiemetics He did have a few episodes of dark emesis, no melena or hematochezia. We will obtain stool for occult blood Last EGD was completed in 2017-gastric and duodenal ulcers-colonoscopy 2017 with colitis- reports a chronic history of pancreatitis Qualifiers: Abdominal location: unspecified location Qualified Code(s): R10.9 - Unspecified abdominal pain (2) Leukocytosis Current Visit: Yes Status: Acute Assessment and plan: 1 unsure of etiology-patient does have a history of colitis -GI panel is negative -leukocytosis appears to be improving-yesterday 32.1 today 28.4. We will continue with vancomycin and Zosyn. Recheck urine. Obtain sputum sample- blood culture pulmonary no growth Qualifiers: Leukocytosis type: bandemia Qualified Code(s): D72.825 - Bandemia (3) Nausea and vomiting Current Visit: Yes Status: Acute Assessment and plan: 1 patient did have some dark emesis GI has been consulted and he will be nothing by mouth for possible EGD in a.m. Monitor hemoglobin Continue with antiemetics Qualifiers: Vomiting type: unspecified Vomiting Intractability: non-intractable Qualified Code(s): R11.2 - Nausea with vomiting, unspecified (4) Pancreatitis Current Visit: Yes Status: Chronic Assessment and plan: Ultrasound revealed periportal and cholecystic edema which may relate to underlying liver disease or pancreatitis Repeat LFTs are pending Continue with nothing by mouth diet Continue with IV fluids antiemetics and pain medications Qualifiers: Chronicity: chronic Pancreatitis type: unspecified pancreatitis type Qualified Code(s): K86.1 - Other chronic pancreatitis (5) Hepatitis C Current Visit: No Status: Chronic Assessment and plan: 1 LFTs are stable at this time-reports only occasional alcohol/drug past history of IV DU use-positive for marijuana Qualifiers: Viral hepatitis chronicity: chronic Hepatic coma status: without hepatic coma Qualified Code(s): B18.2 - Chronic viral hepatitis C (6) DVT prophylaxis Current Visit: Yes Status: Acute Assessment and plan: SCD - Subjective Interval history: Jay denies any abdominal pain. He does have episodes of dark emesis denies any hematochezia or melena. - Constitutional Vitals: Temp Pulse Resp BP Pulse Ox 98.7 F 70 17 162/89 96 12/05/17 11:45 12/05/17 11:45 12/05/17 11:45 12/05/17 11:45 12/05/17 11:45 General appearance: Present: mild distress, A&O X 3, no acute distress - Head Head exam: Present: atraumatic, normocephalic - Eye Eye exam: Present: PERRL, conjuntiva pink, sclera anicteric Pupils: Present: PERRL - Neck Neck exam general surgery: Present: supple, trachea midline. Absent: lymphadenopathy - Respiratory Respiratory exam: Present: CTAB. Absent: accessory muscle use, rales, rhonchi, wheezes - Cardiovascular Cardiovascular exam: Present: RRR, +S1, +S2. Absent: diastolic murmur, gallop, rubs, systolic murmur - GI/Abdominal GI/Abdominal exam: Present: normal bowel sounds, soft, no peritoneal signs. Absent: distended, tenderness - Extremities Exam Extremities exam: Present: warm, radial pulses palpable and symmetrical. Absent : calf tenderness, cyanotic, pedal edema - Neurological Exam Neurological exam: Present: CN II-XII intact, oriented X3, no focal deficits. Absent: pronater drift, facial droop, speech deficit - Skin Skin exam: Present: dry, intact Internal Medicine: Result - Labs CBC & Chem 7: 12/05/17 04:12 12/05/17 04:12 Labs: Short CBC 12/05/17 Range/Units 04:12 WBC 28.4 H (4.3-11.1) K/mcL Hgb 18.3 H (12.9-16.9) g/dL Hct 53.6 H (37.5-50.1) % Plt Count 181 (140-400) K/mcL BMP 12/05/17 04:12 Sodium 136 Potassium 4.0 D Chloride 106 Carbon Dioxide 23 BUN 14 Creatinine 0.97 Glucose 135 H Calcium 9.2 Cardiac Enzymes 12/04/17 12/05/17 Range/Units 22:20 04:12 Troponin I 0.04 H* 0.04 H* (< 0.04) ng/mL - ABG Interpretation ABG results: PT/INR, D-dimer D-Dimer 3233 ng/mLFEU (0-500) H 12/04/17 22:20 - Impressions Impressions Abdomen/Pelvis CTA 12/04/17 17:02 IMPRESSION: No acute arterial abnormality in the chest abdomen or pelvis. Specifically, there is no aneurysm or dissection. Multifocal atherosclerotic change in the iliac arteries Multifocal wall thickening in the esophagus is noted with multiple adjacent lymph nodes and multifocal ill-defined soft tissue along its margins. Although this could represent sequela of esophagitis and reactive lymph nodes, a tumor should be considered as well. Direct visualization is recommended Left upper lobe lung nodule. RECOMMENDATIONS: Fleischner Society guidelines for follow-up and management of incidentally detected pulmonary nodules: Single Solid Nodule: Nodule size less than 6 mm In a low-risk patient, no routine follow-up. In a high-risk patient, optional CT at 12 months. Nodule size equals 6-8 mm In a low-risk patient, CT at 6-12 months, then consider CT at 18-24 months. In a high-risk patient, CT at 6-12 months, then CT at 18-24 months. Nodule size greater than 8 mm In a low-risk patient, consider CT at 3 months, PET/CT, or tissue sampling. In a high-risk patient, consider CT at 3 months, PET/CT, or tissue sampling. Multiple Solid Nodules: Nodule size less than 6 mm In a low-risk patient, no routine follow-up. In a high-risk patient, optional CT at 12 months. Nodule size equals 6-8 mm In a low-risk patient, CT at 3-6 months, then consider CT at 18-24 months. In a high-risk patient, CT at 3-6 months, then CT at 18-24 months. Nodule size greater than 8 mm In a low-risk patient, CT at 3-6 months, then consider CT at 18-24 months. In a high-risk patient, CT at 3-6 months, then CT at 18-24 months. - Low risk patients include individuals with minimal or absent history of smoking and other known risk factors. - High risk patients include individuals with a history or smoking or known risk factors. Radiology 2017 http://pubs.rsna.org/doi/full/10.1148/radiol.[email or web address] D/ / Moiz Sutton / Moiz Sutton Interpreting Provider: Moiz Sutton Chest CTA 12/04/17 17:02 IMPRESSION: No acute arterial abnormality in the chest abdomen or pelvis. Specifically, there is no aneurysm or dissection. Multifocal atherosclerotic change in the iliac arteries Multifocal wall thickening in the esophagus is noted with multiple adjacent lymph nodes and multifocal ill-defined soft tissue along its margins. Although this could represent sequela of esophagitis and reactive lymph nodes, a tumor should be considered as well. Direct visualization is recommended Left upper lobe lung nodule. RECOMMENDATIONS: Fleischner Society guidelines for follow-up and management of incidentally detected pulmonary nodules: Single Solid Nodule: Nodule size less than 6 mm In a low-risk patient, no routine follow-up. In a high-risk patient, optional CT at 12 months. Nodule size equals 6-8 mm In a low-risk patient, CT at 6-12 months, then consider CT at 18-24 months. In a high-risk patient, CT at 6-12 months, then CT at 18-24 months. Nodule size greater than 8 mm In a low-risk patient, consider CT at 3 months, PET/CT, or tissue sampling. In a high-risk patient, consider CT at 3 months, PET/CT, or tissue sampling. Multiple Solid Nodules: Nodule size less than 6 mm In a low-risk patient, no routine follow-up. In a high-risk patient, optional CT at 12 months. Nodule size equals 6-8 mm In a low-risk patient, CT at 3-6 months, then consider CT at 18-24 months. In a high-risk patient, CT at 3-6 months, then CT at 18-24 months. Nodule size greater than 8 mm In a low-risk patient, CT at 3-6 months, then consider CT at 18-24 months. In a high-risk patient, CT at 3-6 months, then CT at 18-24 months. - Low risk patients include individuals with minimal or absent history of smoking and other known risk factors. - High risk patients include individuals with a history or smoking or known risk factors. Radiology 2017 http://pubs.rsna.org/doi/full/10.1148/radiol.[email or web address] D/ / Moiz Sutton / Moiz Sutton Interpreting Provider: Moiz Sutton Abdomen Ultrasound 12/05/17 10:00 IMPRESSION: Periportal and pericholecystic edema, which may be related to underlying liver disease or pancreatitis. D/ / 12/05/2017 10:47:05 Aracelis Emanuel MD / Cony Hopper Interpreting Provider: Aracelis Emanuel MD Echocardiogram 12/05/17 23:31 Impressions: LVEF 55-60%. No pulmonary hypertension. Normal left ventricular diastolic function. No segmental dysfunction. Normal LV chamber size, wall thickness and function. No significant valvular dysfunction. Left Ventricular Wall Motion: Rest Echo Findings All wall segments showed normal motion. Findings: Study Quality * Technically adequate exam. Right Ventricle * Normal right ventricular structure and function. Left Atrium * Normal left atrial size. Right Atrium * Normal right atrial size. Aortic Valve * Trileaflet aortic valve with normal function. Mitral Valve * Normal mitral valve structure and function. * Hypertrophied papillary muscle Interatrial Septum * No evidence of PFO by color Doppler. Aorta * Normally sized aortic root. Pericardium * The pericardium appears normal. ECG Findings * Normal sinus rhythm. Tricuspid Valve * Trace tricuspid regurgitation. * No tricuspid stenosis. * Estimated RVSP is 32 mmHg. * No pulmonary hypertension. Pulmonic Valve * No pulmonic regurgitation. * No pulmonic stenosis. Left Ventricle * LVEF 55-60%. * Normal left ventricular diastolic function. * No segmental dysfunction. * Normal LV chamber size, wall thickness and function. IVC * Normal IVC dimensions and inspiratory collapse. Consult Discharge Plan - Plan Referrals: NONE,PCP [Primary Care Provider] -
[2017-12-05] MEDS: Acetaminophen 325 MG TABLET PO PRN (21:44)
[2017-12-06] MEDS: OXYCODONE Oral CONC 10 MG/0.5 ML ORAL.SYG SL PRN ×3 (01:21→22:17)
[2017-12-06] MEDS ORDERED: Nicotine 2 MG GUM BC PRN (04:03)
[2017-12-06] MEDS: 0.9 % Sodium Chloride 1,000 ML IVC SCH (04:24)
[2017-12-06 05:57] LABS: Bilirubin,Urine Negative (Negative); Blood,Urine Negative (Negative); Clarity,Urine Clear (Clear); Color,Urine Yellow (Yellow); Glucose,Urine (UA) Normal (Normal); Ketones,Urine Negative (Negative); Leukocyte Esterase,Urine Negative (Negative); Nitrite,Urine Negative (Negative); PH,Urine 6.5 pH Units (5.0-8.0); Protein,Urine Negative (Neg-Trace); Specific Gravity,Urine 1.016 (1.010-1.025); Urobilinogen,Urine Normal (Normal)
[2017-12-06] MEDS: Acetaminophen 325 MG TABLET PO PRN (06:04)
[2017-12-06] MEDS: *HR* Heparin 5,000 UNIT/ML VIAL SQ SCH ×3 (06:08→22:18)
[2017-12-06] MEDS: Piperacillin/Tazobactam 3.375 GM in 0.9 % Sodium Chloride Mini Bag 100 ML IVPB SCH ×3 (06:09→20:05)
[2017-12-06 08:28] LABS: Albumin 3.4 g/dL (3.5-5.7); Albumin/Globulin Ratio 1.4 (1.1-2.2); Bilirubin,Direct 0.4 mg/dL (0.0-0.2); Bilirubin,Indirect 0.9 mg/dL (0.0-1.2); Bilirubin,Total 1.3 mg/dL (0.3-1.0); Globulin 2.4 g/dL (2.4-3.5); Total Protein 5.8 g/dL (6.4-8.9)
[2017-12-06 08:57] LABS: Hematocrit 47.5 % (37.5-50.1); Immature Platelets 7.4 % (1.1-6.1); Mean Corpuscular HGB Conc 33.7 g/dL (31.6-35.5); Mean Corpuscular Hemoglobin 30.7 pg (28.0-33.3); Mean Corpuscular Volume 91.2 fL (83.0-100.0); Mean Platelet Volume 11.3 fL (9.4-12.4); Red Blood Count 5.21 M/mcL (4.19-5.50); Red Cell Distribution Width 12.7 % (11.5-14.5)
[2017-12-06 09:34] LABS: BUN/Creatinine Ratio 10 (6-26); Blood Urea Nitrogen 9 mg/dL (6-20); Calcium 8.7 mg/dL (8.6-10.3); Carbon Dioxide 21 mEq/L (23-29); Chloride 108 mEq/L (98-107); Glucose 84 mg/dL (70-105); Osmolality,Calculated 280 (280-300); Potassium 3.5 mEq/L (3.5-5.1); Sodium 136 mEq/L (136-145); eGFR For African Americans > 60 (> 60); eGFR For Non-African Americans > 60 (> 60)
[2017-12-06] MEDS: *HR* Promethazine 25 MG/ML VIAL IVP PRN ×2 (12:10→17:47)
[2017-12-06] MEDS ORDERED: *HR* Propofol 200 MG/20 ML VIAL IVP ONE (13:23)
[2017-12-06] MEDS ORDERED: Lidocaine -MPF 2% 2 ML VIAL ONE ×2 (13:23→14:14)
[2017-12-06] MEDS ORDERED: Propofol 500 MG/50 ML INFUS..BTL ONE (14:14)
--- NOTE | 2017-12-06 14:14 | Anesthesia Evaluation PreOp ---
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 ANALYST History: Denies Any Significant HX Other Medical History: Hepatic (Hep C) Anesthesia History: No Prior Anesthetic Complications, Past Anesthesia (Kidney, Large bowel) Alcohol Use: occasionally (twice per year) Drug use: marijuana Medications and Allergies No Known Home Drugs 12/04/17 [History] 3 Allergy/AdvReac Type Severity Reaction Status Date / Time ondansetron Allergy Nausea Verified 12/03/17 00:27 - Meds/Allergy Pre-op Review Medications Reviewed: Yes Allergies Reviewed: Yes Beta Blockers on Current Med List: No Anesthesia Results - Labs 12/06/17 08:32 12/06/17 06:43 - Imaging EKG: other ( Test Date: 2017-12-04 Pat Name: Mykel Patel Department: 113 Room: [facility] Gender: M 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 D/ / 12/05/2017 10:47:05 Aracelis Emanuel MD / Cony Hopper Interpreting Provider: Aracelis Emanuel MD Echocardiogram 12/05/17 23:31 Impressions: LVEF 55-60%. No pulmonary hypertension. Normal left ventricular diastolic function. No segmental dysfunction. Normal LV chamber size, wall thickness and function. No significant valvular dysfunction. Anesthesia Exam Vital Signs/O2 Sat, Most Current Temp Pulse Resp BP Pulse Ox 97.8 F 63 16 143/109 100 12/06/17 11:21 12/06/17 13:55 12/06/17 13:55 12/06/17 13:55 12/06/17 13:55 Height: 66 Weight: 64 NPO (# of Hours): greater than 8 hours - HEENT Pupil (Motor): Pupils equal Mallampati: II Teeth: Edentulous Oral Opening: Greater than 3 - ENVIRONMENTAL ANALYST LOC: Oriented ENVIRONMENTAL ANALYST Motor: Normal RUE, Normal LUE, Normal RLE, Normal LLE, Normal Face ENVIRONMENTAL ANALYST Sensory: Normal: RUE, LUE, RLE, LLE, Face - Cardiac Rhythm: Regular Murmur: None JVD: No Carotid Bruit: No - Pulmonary Breath Sounds: bilateral Clear Respiratory Effort: Symmetrical Anesthesia Assess/Plan Modified Anali Scale for Level of Consciousness: Cooperative, oriented, and tranquil Anesthetic Plan: MAC Monitoring Plan: Standard Monitors Recovery Plan: Other
--- NOTE | 2017-12-06 15:00 | Internal Med Progress Note ---
Date of Encounter: 12/06/17 Time of Encounter: 14:56 - Assessment and plan (1) Abdominal pain Current Visit: Yes Status: Acute Assessment and plan: Patient states no abdominal pain at this time but that he is hungry. Right upper quadrant ultrasound reviewed for periportal and pericholecystic edema. CTA of abdomen and pelvis reviewed with multifocal wall thickening in the esophagus. GI has been consulted and is following the patient with EGD pending today Last EGD was completed 2017 that revealed gastric and duodenal ulcers. Colonoscopy in 2017 revealed: Colitis. Patient reports a chronic history of pancreatitis. Patient reported a few episodes of dark emesis with no melena or hematochezia GI stool panel canceled Qualifiers: Abdominal location: unspecified location Qualified Code(s): R10.9 - Unspecified abdominal pain (2) Nausea and vomiting Current Visit: Yes Status: Resolved Assessment and plan: Patient with dark emesis. GI consult noted and EGD and process. Anti-emetics as needed Currently no nausea or vomiting. Hemoglobin currently 16, 19.3 on admission could be delusional Hematocrit 47.5 and 55.7 on admission Qualifiers: Vomiting type: unspecified Vomiting Intractability: non-intractable Qualified Code(s): R11.2 - Nausea with vomiting, unspecified (3) Pancreatitis Current Visit: Yes Status: Chronic Assessment and plan: CTA revealed multifocal wall thickening in the esophagus with multiple adjacent lymph nodes in multifocal ill-defined soft tissue along its margins. This could represent sequela of esophagitis and reactive lymph nodes but a tumor should be considered and direct visualization is recommended by GI service. Patient undergoing EGD today. Ultrasound revealed periportal and pericholecystic edema which may be related to underlying liver disease or pancreatitis Repeat LFTs slightly improved. Lipase 120, amylase 78, triglycerides 85 Continue IV fluids, antiemetics, and pain medication. Await results of EGD to determine treatment course Appreciate GI service and put Qualifiers: Chronicity: chronic Pancreatitis type: unspecified pancreatitis type Qualified Code(s): K86.1 - Other chronic pancreatitis (4) DVT prophylaxis Current Visit: Yes Status: Acute Assessment and plan: No pharmacological intervention secondary to anemia SCDs (5) Leukocytosis Current Visit: Yes Status: Acute Assessment and plan: WBC is improving, patient is afebrile Patient has history of colitis and presented with leukocytosis and abdominal pain GI panel is negative Blood cultures no growth on preliminary report 4 bottles Continue vancomycin and Zosyn. Empiric Cipro and Flagyl were changed Qualifiers: Leukocytosis type: bandemia Qualified Code(s): D72.825 - Bandemia (6) Hepatitis C Current Visit: No Status: Chronic Assessment and plan: GI following the patient. Fibrosis - 4 score 1.07 fibrosis stage: 0-1 FIB 4 scores less than 1.45 are 81% sensitive (NPV 90%) to rule out advanced fibrosis Patient reports occasional alcohol and drug use Continue to monitor Qualifiers: Viral hepatitis chronicity: chronic Hepatic coma status: without hepatic coma Qualified Code(s): B18.2 - Chronic viral hepatitis C - Time Spent With Patient Total time spent is greater than 50% in coordination of care (as documented) at patient's floor/unit and/or counseling patient: - Subjective Interval history: Patient lying in bed complaining of feeling hungry. He is awaiting EGD so his nothing by mouth status. Denies any fevers, chills, muscle aches or pains, headache, chest pain, or abdominal pain. No nausea or vomiting. - Constitutional Vitals: Temp Pulse Resp BP Pulse Ox 97.8 F 63 16 143/109 100 12/06/17 11:21 12/06/17 13:55 12/06/17 13:55 12/06/17 13:55 12/06/17 13:55 General appearance: Present: cooperative, disheveled, A&O X 3, pleasant, answers questions appropriately - Head Head exam: Present: atraumatic, normocephalic - Eye Eye exam: Present: PERRL, conjuntiva pink, sclera anicteric Pupils: Present: PERRL - Neck Neck exam general surgery: Present: supple, trachea midline. Absent: lymphadenopathy - Respiratory Respiratory exam: Present: decreased breath sounds. Absent: accessory muscle use, rales, rhonchi, wheezes - Cardiovascular Cardiovascular exam: Present: RRR, +S1, +S2. Absent: diastolic murmur, gallop, rubs, systolic murmur - GI/Abdominal GI/Abdominal exam: Present: hyperactive bowel sounds, soft, no peritoneal signs. Absent: distended, guarding, tenderness - Extremities Exam Extremities exam: Present: warm, radial pulses palpable and symmetrical. Absent : calf tenderness, cyanotic, pedal edema - Neurological Exam Neurological exam: Present: alert, CN II-XII intact, oriented X3, no focal deficits. Absent: pronater drift, facial droop, speech deficit - Skin Skin exam: Present: dry, intact, normal color, warm Additional comments: poor hygiene Internal Medicine: Result - Labs CBC & Chem 7: 12/06/17 08:32 12/06/17 06:43 Labs: Short CBC 12/06/17 Range/Units 08:32 WBC 13.4 H D (4.3-11.1) K/mcL Hgb 16.0 D (12.9-16.9) g/dL Hct 47.5 (37.5-50.1) % Plt Count 134 L (140-400) K/mcL BMP 12/06/17 06:43 Sodium 136 Potassium 3.5 Chloride 108 H Carbon Dioxide 21 L BUN 9 Creatinine 0.89 Glucose 84 Calcium 8.7 Liver Function 12/05/17 12/06/17 Range/Units 15:07 06:43 Total Bilirubin 1.3 H 1.3 H (0.3-1.0) mg/dL Direct Bilirubin 0.3 H 0.4 H (0.0-0.2) mg/dL AST 19 16 (13-39) Units/L ALT 34 26 (7-52) Units/L Alkaline Phosphatase 85 71 (34-104) Units/L Albumin 4.1 3.4 L (3.5-5.7) g/dL Urine 12/06/17 Range/Units 05:45 Urine Color Yellow (Yellow) Urine Clarity Clear (Clear) Urine pH 6.5 (5.0-8.0) pH Units Ur Specific [place] 1.016 (1.010-1.025) Urine Protein Negative (Neg-Trace) mg/dL Urine Glucose (UA) Normal (Normal) mg/dL - ABG Interpretation ABG results: PT/INR, D-dimer D-Dimer 3233 ng/mLFEU (0-500) H 12/04/17 22:20 - Impressions Impressions Abdomen MRI 12/05/17 17:32 IMPRESSION: Unremarkable MRCP. D/ / Aldair Quevedo / Aldair Quevedo Interpreting Provider: Aldair Quevedo Consult Discharge Plan - Plan Referrals: NONE,PCP [Primary Care Provider] -
[2017-12-06] MEDS: hydrALAZINE 10 MG TABLET PO PRN (19:37)
[2017-12-07] MEDS: *HR* Promethazine 25 MG/ML VIAL IVP PRN (00:08)
[2017-12-07] MEDS: hydrALAZINE 10 MG TABLET PO PRN (03:37)
[2017-12-07] MEDS ORDERED: Nitroglycerin 0.4 MG TAB.SUBL SL PRN (03:43)
[2017-12-07] MEDS: *HR* Heparin 5,000 UNIT/ML VIAL SQ SCH ×3 (06:28→22:27)
[2017-12-07] MEDS: OXYCODONE Oral CONC 10 MG/0.5 ML ORAL.SYG SL PRN (06:29)
[2017-12-07] MEDS: 0.9 % Sodium Chloride 1,000 ML IVC SCH ×3 (07:53→10:10)
[2017-12-07] MEDS: Piperacillin/Tazobactam 3.375 GM in 0.9 % Sodium Chloride Mini Bag 100 ML IVPB SCH ×3 (07:56→17:41)
[2017-12-07] MEDS: hydroCHLOROthiazide 25 MG TABLET PO SCH (07:58)
[2017-12-07 08:06] LABS: BUN/Creatinine Ratio 11 (6-26); Blood Urea Nitrogen 9 mg/dL (6-20); Calcium 9.4 mg/dL (8.6-10.3); Carbon Dioxide 26 mEq/L (23-29); Chloride 101 mEq/L (98-107); Glucose 103 mg/dL (70-105); Osmolality,Calculated 281 (280-300); Potassium 3.4 mEq/L (3.5-5.1); Sodium 136 mEq/L (136-145); eGFR For African Americans > 60 (> 60); eGFR For Non-African Americans > 60 (> 60)
[2017-12-07 08:08] LABS: Albumin 3.9 g/dL (3.5-5.7); Albumin/Globulin Ratio 1.3 (1.1-2.2); Bilirubin,Direct 0.4 mg/dL (0.0-0.2); Bilirubin,Indirect 0.9 mg/dL (0.0-1.2); Bilirubin,Total 1.3 mg/dL (0.3-1.0); Globulin 2.9 g/dL (2.4-3.5); Total Protein 6.8 g/dL (6.4-8.9)
[2017-12-07 08:20] LABS: Hematocrit 53.7 % (37.5-50.1); Mean Corpuscular Volume 88.6 fL (83.0-100.0); Mean Platelet Volume 11.5 fL (9.4-12.4); Platelet Count 193 K/mcL (140-400); Red Blood Count 6.06 M/mcL (4.19-5.50); Red Cell Distribution Width 12.2 % (11.5-14.5)
[2017-12-07 08:21] LABS: Hemoglobin 18.8 g/dL (12.9-16.9)
--- NOTE | 2017-12-07 08:29 | Gastroenterology Progress Note ---
<Warren Ruiz - Last Filed: 12/07/17 15:55> Date of Encounter: 12/07/17 Time of Encounter: 08:25 - Assessment and plan (1) Esophageal ulcer with bleeding Status: Acute Assessment and plan: CTA revealed multifocal wall thickening in the esophagus with multiple adjacent lymph nodes and multifocal ill-defined soft tissue along its margins. Although this could represent sequela of esophagitis and reactive lymph nodes, a tumor should be considered as well. Direct visualization is recommended. EGD revealed bleeding ulcer at GE junction. Pathology results pending. CEA level 2.0 Patient is not tolerating PO intake and vomiting after trying liquid diet last PM. Keep NPO for now, advance diet as tolerated. (2) Pancreatitis Status: Chronic Assessment and plan: RUQ pain and ultrasound revealed periportal and pericholecystic edema, which may be related to underlying liver disease or pancreatitis Continue IVFs, anti-emetics and pain medication Patient is not tolerating PO intake Qualifiers: Chronicity: chronic Pancreatitis type: unspecified pancreatitis type Qualified Code(s): K86.1 - Other chronic pancreatitis (3) Leukocytosis Status: Acute Assessment and plan: Patient with history of colitis oresenting with leukocytosis and abd pain GI panel negative Blood cultures show no growth to date Empiric Cipro and Flagyl were changed to Vanc and Zosyn Qualifiers: Leukocytosis type: bandemia Qualified Code(s): D72.825 - Bandemia (4) Hepatitis C Status: Chronic Assessment and plan: Fibrosis-4 score 1.07 points Fibrosis Stage: 0-1 FIB-4 scores <1.45 are 81% sensitive (NPV 90%) to rule out advanced fibrosis. Patient reports occasional alcohol and drug use Continue to monitor Qualifiers: Viral hepatitis chronicity: chronic Hepatic coma status: without hepatic coma Qualified Code(s): B18.2 - Chronic viral hepatitis C - Time Spent With Patient Total time spent is greater than 50% in coordination of care (as documented) at patient's floor/unit and/or counseling patient: - Subjective Interval history: Patient seen and examined. He reports not tolerating PO intake and vomiting after trying liquid diet last PM. EGD revealed bleeding ulcer at GE junction. CEA level was ordered. Pathology results are pending. - Constitutional Vitals: Temp Pulse Resp BP Pulse Ox 99.1 F 83 15 166/106 96 12/07/17 07:05 12/07/17 07:05 12/07/17 07:05 12/07/17 07:05 12/07/17 07:05 General appearance: Present: cooperative, disheveled, A&O X 3, no acute distress , answers questions appropriately - Head Head exam: Present: atraumatic, normocephalic - Eye Eye exam: Present: normal appearance, sclera anicteric - Neck Neck exam general surgery: Present: normal inspection, trachea midline - Respiratory Respiratory exam: Present: CTAB - Cardiovascular Cardiovascular exam: Present: RRR, +S1, +S2 - GI/Abdominal GI/Abdominal exam: Present: normal bowel sounds, soft, tenderness (epigastric), no peritoneal signs. Absent: distended, guarding - Rectal Rectal exam: Present: deferred - Extremities Exam Extremities exam: Present: warm. Absent: pedal edema - Neurological Exam Neurological exam: Present: oriented X3, no focal deficits - Psychiatric Psychiatric exam: Present: normal affect, normal mood - Skin Skin exam: Present: dry, intact, normal color, warm Results - Labs CBC & Chem 7: 12/07/17 07:29 12/07/17 07:29 Labs: Last Result Calcium 9.4 mg/dL (8.6-10.3) 12/07/17 07:29 Troponin I 0.05 ng/mL (< 0.04) H* 12/07/17 07:29 Triglycerides 85 mg/dL (< 150) 12/05/17 04:12 Urine Opiates Screen Negative ng/mL (Fwshio=507) 12/04/17 00:00 Entire Visit Hgb 18.8 g/dL (12.9-16.9) H D 12/07/17 07:29 Hct 53.7 % (37.5-50.1) H 12/07/17 07:29 Total Bilirubin 1.3 mg/dL (0.3-1.0) H 12/07/17 07:29 AST 24 Units/L (13-39) 12/07/17 07:29 ALT 31 Units/L (7-52) 12/07/17 07:29 Amylase 78 Units/L (29-103) 12/05/17 15:07 Lipase 120 Units/L (11-82) H 12/05/17 15:07 - ABG ABG results: PT/INR, D-dimer D-Dimer 3233 ng/mLFEU (0-500) H 12/04/17 22:20 Consult Discharge Plan - Plan Instructions: Diet for Ulcers and Gastritis (GEN), Seasoning Without Salt (DC) , Acute Abdominal Pain (DC), Chronic Hypertension (DC), Low Sodium Diet (DC) Referrals: Shiva Saunders MD [Partnered Physician] - (Appointment has been requested, our offices will call you with an appointment time and date. Thank You. ) Carli Skelton ASSISTANT SPA DIRECTOR [Advanced Practice Nurse] - (Appointment has been webrequested. Our offices will call you with an appointment time and date.) NONE,PCP [Primary Care Provider] - <Shiva Saunders - Last Filed: 12/26/17 07:34> Date of Encounter: 12/07/17 - Time Spent With Patient Total time spent is greater than 50% in coordination of care (as documented) at patient's floor/unit and/or counseling patient: - Constitutional Vitals: Temp Pulse Resp BP Pulse Ox 98.2 F 90 16 153/84 97 12/08/17 11:14 12/08/17 11:14 12/08/17 11:14 12/08/17 11:14 12/08/17 11:14 Results - Labs CBC & Chem 7: 12/08/17 04:45 12/08/17 04:45 Labs: Last Result Calcium 8.7 mg/dL (8.6-10.3) 12/08/17 04:45 Troponin I 0.05 ng/mL (< 0.04) H* 12/07/17 07:29 Triglycerides 85 mg/dL (< 150) 12/05/17 04:12 Urine Opiates Screen Negative ng/mL (Akrofw=149) 12/04/17 00:00 Entire Visit Hgb 16.0 g/dL (12.9-16.9) D 12/08/17 04:45 Hct 46.5 % (37.5-50.1) 12/08/17 04:45 Total Bilirubin 1.3 mg/dL (0.3-1.0) H 12/07/17 07:29 AST 24 Units/L (13-39) 12/07/17 07:29 ALT 31 Units/L (7-52) 12/07/17 07:29 Amylase 78 Units/L (29-103) 12/05/17 15:07 Lipase 120 Units/L (11-82) H 12/05/17 15:07 Carcinoembryonic Ag 2.0 ng/mL (Less than 5.0) 12/07/17 07:29 - ABG ABG results: PT/INR, D-dimer D-Dimer 3233 ng/mLFEU (0-500) H 12/04/17 22:20 - Attending Attestation Reviewed this CT on Miss Patel interviewed as well as examined as well as I examined this patient and my medical decision-making was reviewed with the Resident Physician. I agree with the documented findings, disposition and treatment plan as described except to the extent set forth below. plan upper endoscopy and then make further recommendations
[2017-12-07] MEDS ORDERED: Acetaminophen IV 500 MG/50 ML INFUS..BTL IVPB ONE (08:46)
[2017-12-07] MEDS ORDERED: Acetaminophen IV 1,000 MG/100 ML INFUS..BTL IVPB ONE (08:49)
[2017-12-07] MEDS: Pantoprazole 40 MG VIAL IVP SCH (10:10)
--- NOTE | 2017-12-07 17:20 | Electrocardiograph Report ---
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
--- NOTE | 2017-12-07 17:49 | Internal Med Progress Note ---
Date of Encounter: 12/07/17 Time of Encounter: 17:42 - Assessment and plan (1) Abdominal pain Current Visit: Yes Status: Acute Assessment and plan: Patient states no nausea at this time. Right upper quadrant ultrasound reviewed for periportal and pericholecystic edema. CTA of abdomen and pelvis reviewed with multifocal wall thickening in the esophagus. GI had been consulted and is following the patient EGD revealed bleeding ulcer at GE junction with pathology report pending. Last EGD was completed 2017 that revealed gastric and duodenal ulcers. Colonoscopy in 2017 revealed: Colitis. Patient reports a chronic history of pancreatitis. Patient reported a few episodes of dark emesis with no melena or hematochezia GI stool panel canceled CEA level is 2.0 Patient did not tolerate by mouth intake overnight and was vomiting this morning so was made nothing by mouth until lunch. He was then trialed on clear liquids. Would like to remain on clear liquids and will advance to full liquids in the morning. WBCs are slightly elevated today Qualifiers: Abdominal location: unspecified location Qualified Code(s): R10.9 - Unspecified abdominal pain (2) Nausea and vomiting Current Visit: Yes Status: Resolved Assessment and plan: Patient with emesis this am and through the night. Anti-emetics as needed Currently no nausea or vomiting. Retained some clear liquids for lunch Continue IV fluids Hemoglobin 18.8 hematocrit 53.7 Qualifiers: Vomiting type: unspecified Vomiting Intractability: non-intractable Qualified Code(s): R11.2 - Nausea with vomiting, unspecified (3) Pancreatitis Current Visit: Yes Status: Chronic Assessment and plan: CTA revealed multifocal wall thickening in the esophagus with multiple adjacent lymph nodes in multifocal ill-defined soft tissue along its margins. This could represent sequela of esophagitis and reactive lymph nodes but a tumor should be considered and direct visualization is recommended by GI service. Patient s/p EGD Ultrasound revealed periportal and pericholecystic edema which may be related to underlying liver disease or pancreatitis Repeat LFTs slightly improved. Lipase 120, amylase 78, triglycerides 85 Continue IV fluids, antiemetics, and pain medication. await biopsy report Appreciate GI service input Qualifiers: Chronicity: chronic Pancreatitis type: unspecified pancreatitis type Qualified Code(s): K86.1 - Other chronic pancreatitis (4) DVT prophylaxis Current Visit: Yes Status: Acute Assessment and plan: No pharmacological intervention secondary to anemia, SCDs (5) Leukocytosis Current Visit: Yes Status: Acute Assessment and plan: WBC was improving, patient is afebrile Patient has history of colitis and presented with leukocytosis and abdominal pain GI panel is negative Blood cultures no growth 4 bottles Continue vancomycin and Zosyn. Empiric Cipro and Flagyl were changed Qualifiers: Leukocytosis type: bandemia Qualified Code(s): D72.825 - Bandemia (6) Hepatitis C Current Visit: No Status: Chronic Assessment and plan: GI following patient. Fibrosis - 4 score 1.07 fibrosis stage: 0-1 FIB 4 scores less than 1.45 are 81% sensitive (NPV 90%) to rule out advanced fibrosis Patient reports occasional alcohol and drug use Continue to monitor Qualifiers: Viral hepatitis chronicity: chronic Hepatic coma status: without hepatic coma Qualified Code(s): B18.2 - Chronic viral hepatitis C - Time Spent With Patient Total time spent is greater than 50% in coordination of care (as documented) at patient's floor/unit and/or counseling patient: - Subjective Interval history: Patient lying in bed. He wants to go outside to smoke and he wants his diet advanced even though he had been vomiting throughout the night and early this morning after failing liquids last night. He stated he had some clear liquids for lunch and did okay but did not take in very much. He wanted to leave the floor to smoke and I was told that he is not allowed to leave the floor. He is on the security monitor and a little bit tachycardia. He became rather upset and was swearing. I told him I would not tolerate his behavior and he was not to be disrespectful to me or to the staff. He said we continue to block his efforts to do anything such as getting up and walking down to the gift shop or outside. Also will not allow him to eat what he wants to eat. He stated he is not allowed to do anything not even "kill himself". Explained that we are trying to do what is best for him and follow GIs instructions. I stated we would not advance his diet until he was tolerating clear liquids without pain or vomiting. He then stop talking to me. - Constitutional Vitals: Temp Pulse Resp BP Pulse Ox 97.9 F 95 13 120/75 95 12/07/17 15:43 12/07/17 15:43 04/04/18 15:43 12/07/17 15:43 12/07/17 15:43 General appearance: Present: disheveled, A&O X 3, answers questions appropriately. Absent: cooperative, pleasant - Head Head exam: Present: atraumatic, normocephalic - Eye Eye exam: Present: PERRL, conjuntiva pink, sclera anicteric Pupils: Present: PERRL - Neck Neck exam general surgery: Present: supple, trachea midline. Absent: lymphadenopathy - Respiratory Respiratory exam: Present: CTAB. Absent: accessory muscle use, rales, rhonchi, wheezes - Cardiovascular Cardiovascular exam: Present: RRR, +S1, +S2, tachycardia. Absent: diastolic murmur, gallop, rubs, systolic murmur - GI/Abdominal GI/Abdominal exam: Present: normal bowel sounds, soft, no peritoneal signs. Absent: distended, guarding, tenderness - Extremities Exam Extremities exam: Present: warm, radial pulses palpable and symmetrical. Absent : calf tenderness, cyanotic, pedal edema - Neurological Exam Neurological exam: Present: alert, CN II-XII intact, oriented X3, no focal deficits. Absent: pronater drift, facial droop, speech deficit - Skin Skin exam: Present: dry, intact, normal color, warm Internal Medicine: Result - Labs CBC & Chem 7: 12/07/17 07:29 12/07/17 07:29 Labs: Short CBC 12/07/17 Range/Units 07:29 WBC 17.2 H (4.3-11.1) K/mcL Hgb 18.8 H D (12.9-16.9) g/dL Hct 53.7 H (37.5-50.1) % Plt Count 193 (140-400) K/mcL BMP 12/07/17 07:29 Sodium 136 Potassium 3.4 L Chloride 101 Carbon Dioxide 26 BUN 9 Creatinine 0.82 Glucose 103 Calcium 9.4 Cardiac Enzymes 12/07/17 Range/Units 07:29 Troponin I 0.05 H* (< 0.04) ng/mL Liver Function 12/07/17 Range/Units 07:29 Total Bilirubin 1.3 H (0.3-1.0) mg/dL Direct Bilirubin 0.4 H (0.0-0.2) mg/dL AST 24 (13-39) Units/L ALT 31 (7-52) Units/L Alkaline Phosphatase 88 (34-104) Units/L Albumin 3.9 (3.5-5.7) g/dL - ABG Interpretation ABG results: PT/INR, D-dimer D-Dimer 3233 ng/mLFEU (0-500) H 12/04/17 22:20 Consult Discharge Plan - Plan Referrals: NONE,PCP [Primary Care Provider] -
[2017-12-07] MEDS: *HR* OxyCODONE/APAP 10/325 TABLET PO PRN (23:15)
[2017-12-08] MEDS: Piperacillin/Tazobactam 3.375 GM in 0.9 % Sodium Chloride Mini Bag 100 ML IVPB SCH (03:17)
[2017-12-08 05:19] LABS: BUN/Creatinine Ratio 9 (6-26); Blood Urea Nitrogen 9 mg/dL (6-20); Calcium 8.7 mg/dL (8.6-10.3); Carbon Dioxide 30 mEq/L (23-29); Chloride 106 mEq/L (98-107); Glucose 111 mg/dL (70-105); Osmolality,Calculated 285 (280-300); Potassium 3.1 mEq/L (3.5-5.1); Sodium 138 mEq/L (136-145); eGFR For African Americans > 60 (> 60); eGFR For Non-African Americans > 60 (> 60)
[2017-12-08 05:20] LABS: Hematocrit 46.5 % (37.5-50.1); Mean Corpuscular HGB Conc 34.4 g/dL (31.6-35.5); Mean Corpuscular Hemoglobin 30.7 pg (28.0-33.3); Mean Corpuscular Volume 89.3 fL (83.0-100.0); Mean Platelet Volume 11.3 fL (9.4-12.4); Platelet Count 175 K/mcL (140-400); Red Blood Count 5.21 M/mcL (4.19-5.50); Red Cell Distribution Width 12.4 % (11.5-14.5)
[2017-12-08] MEDS: *HR* OxyCODONE/APAP 10/325 TABLET PO PRN ×2 (05:30→12:27)
[2017-12-08] MEDS: 0.9 % Sodium Chloride 1,000 ML IVC SCH (05:31)
[2017-12-08] MEDS: *HR* Heparin 5,000 UNIT/ML VIAL SQ SCH (05:31)
--- NOTE | 2017-12-08 09:11 | Gastroenterology Progress Note ---
<CrowWarren rocha - Last Filed: 12/08/17 13:39> Date of Encounter: 12/08/17 Time of Encounter: 09:07 - Assessment and plan (1) Esophageal ulcer with bleeding Status: Acute Assessment and plan: CTA revealed multifocal wall thickening in the esophagus with multiple adjacent lymph nodes and multifocal ill-defined soft tissue along its margins. Although this could represent sequela of esophagitis and reactive lymph nodes, a tumor should be considered as well. Direct visualization is recommended. EGD revealed bleeding ulcer at GE junction. Pathology results pending. CEA level 2.0 Advance diet as tolerated. Follow up with GI in 1-2 weeks upon discharge. (2) Pancreatitis Status: Chronic Assessment and plan: RUQ pain and ultrasound revealed periportal and pericholecystic edema, which may be related to underlying liver disease or pancreatitis Continue anti-emetics and analgesics prn Patient is now tolerating PO intake Stable from a GI perspective Qualifiers: Chronicity: chronic Pancreatitis type: unspecified pancreatitis type Qualified Code(s): K86.1 - Other chronic pancreatitis (3) Leukocytosis Status: Resolved Assessment and plan: Patient with history of colitis oresenting with leukocytosis and abd pain GI panel negative Blood cultures show no growth to date Empiric Cipro and Flagyl were changed to Vanc and Zosyn Leukocytosis has resolved Recommend stopping antibiotics Qualifiers: Leukocytosis type: bandemia Qualified Code(s): D72.825 - Bandemia (4) Hepatitis C Status: Chronic Assessment and plan: Fibrosis-4 score 1.07 points Fibrosis Stage: 0-1 FIB-4 scores <1.45 are 81% sensitive (NPV 90%) to rule out advanced fibrosis. Patient reports occasional alcohol and drug use Continue to monitor Qualifiers: Viral hepatitis chronicity: chronic Hepatic coma status: without hepatic coma Qualified Code(s): B18.2 - Chronic viral hepatitis C - Time Spent With Patient Total time spent is greater than 50% in coordination of care (as documented) at patient's floor/unit and/or counseling patient: - Subjective Interval history: Patient seen and examined resting comfortably in bed. Patient reports tolerating PO intake last PM. He denies further hematemesis or any new c/o. Patient would like to go to his sister's house upon discharge. - Constitutional Vitals: Temp Pulse Resp BP Pulse Ox 98.3 F 89 16 145/81 96 12/08/17 07:31 12/08/17 07:31 12/08/17 07:31 12/08/17 07:31 12/08/17 07:31 General appearance: Present: cooperative, disheveled, A&O X 3, no acute distress , answers questions appropriately - Head Head exam: Present: atraumatic, normocephalic - Eye Eye exam: Present: normal appearance, sclera anicteric - ENT ENT exam: Present: mucous membranes moist, normal oropharynx - Neck Neck exam general surgery: Present: normal inspection, trachea midline - Respiratory Respiratory exam: Present: CTAB. Absent: wheezes - Cardiovascular Cardiovascular exam: Present: RRR, +S1, +S2 - GI/Abdominal GI/Abdominal exam: Present: normal bowel sounds, soft, tenderness (LUQ), no peritoneal signs. Absent: distended, guarding - Rectal Rectal exam: Present: deferred - Extremities Exam Extremities exam: Present: warm. Absent: pedal edema - Neurological Exam Neurological exam: Present: oriented X3, no focal deficits - Psychiatric Psychiatric exam: Present: normal affect, normal mood - Skin Skin exam: Present: dry, intact, normal color, warm Results - Labs CBC & Chem 7: 12/08/17 04:45 12/08/17 04:45 Labs: Last Result Calcium 8.7 mg/dL (8.6-10.3) 12/08/17 04:45 Troponin I 0.05 ng/mL (< 0.04) H* 12/07/17 07:29 Triglycerides 85 mg/dL (< 150) 12/05/17 04:12 Urine Opiates Screen Negative ng/mL (Fbanwe=598) 12/04/17 00:00 Entire Visit Hgb 16.0 g/dL (12.9-16.9) D 12/08/17 04:45 Hct 46.5 % (37.5-50.1) 12/08/17 04:45 Total Bilirubin 1.3 mg/dL (0.3-1.0) H 12/07/17 07:29 AST 24 Units/L (13-39) 12/07/17 07:29 ALT 31 Units/L (7-52) 12/07/17 07:29 Amylase 78 Units/L (29-103) 12/05/17 15:07 Lipase 120 Units/L (11-82) H 12/05/17 15:07 Carcinoembryonic Ag 2.0 ng/mL (Less than 5.0) 12/07/17 07:29 - ABG ABG results: PT/INR, D-dimer D-Dimer 3233 ng/mLFEU (0-500) H 12/04/17 22:20 Consult Discharge Plan - Plan Instructions: Diet for Ulcers and Gastritis (GEN), Seasoning Without Salt (DC) , Acute Abdominal Pain (DC), Chronic Hypertension (DC), Low Sodium Diet (DC) Referrals: Shiva Saunders MD [Partnered Physician] - (Appointment has been requested, our offices will call you with an appointment time and date. Thank You. ) Carli Skelton MATH AND SCIENCE INSTRUCTOR [Advanced Practice Nurse] - (Appointment has been webrequested. Our offices will call you with an appointment time and date.) NONE,PCP [Primary Care Provider] - <Shiva Saunders - Last Filed: 12/26/17 07:47> Date of Encounter: 12/08/17 - Time Spent With Patient Total time spent is greater than 50% in coordination of care (as documented) at patient's floor/unit and/or counseling patient: - Constitutional Vitals: Temp Pulse Resp BP Pulse Ox 98.2 F 90 16 153/84 97 12/08/17 11:14 12/08/17 11:14 12/08/17 11:14 12/08/17 11:14 12/08/17 11:14 Results - Labs CBC & Chem 7: 12/08/17 04:45 12/08/17 04:45 Labs: Last Result Calcium 8.7 mg/dL (8.6-10.3) 12/08/17 04:45 Troponin I 0.05 ng/mL (< 0.04) H* 12/07/17 07:29 Triglycerides 85 mg/dL (< 150) 12/05/17 04:12 Urine Opiates Screen Negative ng/mL (Tuoxkg=066) 12/04/17 00:00 Entire Visit Hgb 16.0 g/dL (12.9-16.9) D 12/08/17 04:45 Hct 46.5 % (37.5-50.1) 12/08/17 04:45 Total Bilirubin 1.3 mg/dL (0.3-1.0) H 12/07/17 07:29 AST 24 Units/L (13-39) 12/07/17 07:29 ALT 31 Units/L (7-52) 12/07/17 07:29 Amylase 78 Units/L (29-103) 12/05/17 15:07 Lipase 120 Units/L (11-82) H 12/05/17 15:07 Carcinoembryonic Ag 2.0 ng/mL (Less than 5.0) 12/07/17 07:29 - ABG ABG results: PT/INR, D-dimer D-Dimer 3233 ng/mLFEU (0-500) H 12/04/17 22:20
[2017-12-08] MEDS: Pantoprazole 40 MG VIAL IVP SCH (10:02)
[2017-12-08] MEDS: hydroCHLOROthiazide 25 MG TABLET PO SCH (10:02)
[2017-12-08] MEDS ORDERED: Potassium Chloride Elixir 20 MEQ/15 ML UDC PO ONE (11:06)
--- NOTE | 2017-12-08 11:06 | Discharge Summary ---
- NOTES TO OUTPATIENT PROVIDER Notes to Outpatient Provider: Follow-up with GI service in 2-[address] Saunders. Follow up with PCP in 1 to 2 weeks. Contine carafate and PPI as outpatient Orders not resulted at time of discharge: Pending orders 12/03/17 14:07 Culture,Blood,Additional [BC] Stat 12/04/17 13:22 Culture,Blood [BC] Stat 12/04/17 13:23 Culture,Blood,Additional [BC] Stat 12/06/17 15:30 Surgical Pathology [PTH] Routine 12/08/17 22:00 Vancomycin,Trough Timed 12/09/17 04:00 BMP [Basic Metabolic Panel] AM 0400 BMP [Basic Metabolic Panel] AM 0400 Complete Blood Count w/o Diff [HEME] AM 0400 Complete Blood Count w/o Diff [HEME] AM 0400 Date of Encounter: 12/08/17 Time of Encounter: 11:04 - Discharge Diagnosis (1) Abdominal pain Priority: Primary Status: Acute Qualifiers: Abdominal location: unspecified location Qualified Code(s): R10.9 - Unspecified abdominal pain (2) Nausea and vomiting Priority: Primary Status: Resolved Qualifiers: Vomiting type: unspecified Vomiting Intractability: non-intractable Qualified Code(s): R11.2 - Nausea with vomiting, unspecified (3) Pancreatitis Priority: Primary Status: Chronic Qualifiers: Chronicity: chronic Pancreatitis type: unspecified pancreatitis type Qualified Code(s): K86.1 - Other chronic pancreatitis (4) Leukocytosis Priority: Primary Status: Resolved Qualifiers: Leukocytosis type: bandemia Qualified Code(s): D72.825 - Bandemia (5) Hepatitis C Priority: Primary Status: Chronic Qualifiers: Viral hepatitis chronicity: chronic Hepatic coma status: without hepatic coma Qualified Code(s): B18.2 - Chronic viral hepatitis C (6) Noncompliance of patient with dietary regimen Priority: Primary Status: Acute (7) Elevated troponin Priority: Primary Status: Acute Comments: demand ischemia from bleeding GE ulcer and wretching (8) HTN (hypertension) Priority: Primary Status: Acute Qualifiers: Hypertension type: unspecified Qualified Code(s): I10 - Essential (primary ) hypertension (9) Chest wall pain Priority: Primary Status: Acute Comments: lidoderm patch for reproducible pain (10) Tobacco abuse Priority: Primary Status: Acute Comments: not interested in cessation Hospital course: Mr. Patel is a 42 year old male who presented to the ER on 12/03/17 due to abdominal pain with nausea and vomiting. He did not want to purchase a patent history taking the stated he had had these symptoms for several days. CT abdomen did not show any acute findings but he did have some leukocytosis. He was admitted to the medical surgical floor for nausea vomiting with abdominal pain. Has a history of hypertension, anxiety, bipolar depressive disorder, prior suicide attempt, schizophrenia, IV drug use, tobacco use, and current marijuana use. He was noncompliant with diet. He could be very rude and noxious at times with the staff including swearing and yelling at them. He did not follow his dietary restrictions status post EGD even though he was told the importance of doing so. Nausea and vomiting were resolved and he was eating pizza and bread sticks in the room overnight. A right upper quadrant ultrasound had revealed some periportal and cholecystic edema. CTA of the abdomen and pelvis showed some multifocal wall thickening in the esophagus, GI was consulted and the EGD was performed which revealed a bleeding ulcer at the GE junction. A previous EGD in 2017 showed gastric and duodenal ulcers. A colonoscopy completed in 2017 revealed colitis and patient reports a chronic history of pancreatitis. CEA level was 2.0. Serial troponins were slightly elevated but is felt to be demand ischemia secondary to the GE junction ulcer with bleeding and retching. He had reproduce pull chest wall pain and had declined nitroglycerin when offered. He requested Lidoderm patch for his chest wall. Hemoglobin was watched throughout his admission with no transfusions required. Lipase was 120 amylase 78 and triglycerides 85 on lab exams. LFTs were improved after IV fluids and dietary changes. Patient had no desire to stop smoking. He stated that was wanted his pleasures. He was on vancomycin and Zosyn during his hospitalization and blood culture showed no growth 4 bottles. Hep C workup was completed with a known history of hep C. Appreciate GI input and help with this patient. He is to follow-up with them in the office in 2-[address] Saunders. He was discharged on Carafate 3 times a day with meals as well as a PPI twice a day. No antibiotics are required on discharge. He had some transient hypokalemia was replaced and normalized. He is homeless and had been living in his car for 4 months. He is being discharged to go to live with his sister as social service and telephonic case manager were involved in this plan of care. Discharge discussed with: patient, nurse, social work, case management, senior erp consultant Time spent discussing smoking cessation with patient: 3 to 10 minutes - Time Spent with Patient Total time spent providing and/or coordinating discharge services: Less than 30 minutes - Discharge Medications Prescriptions: hydroCHLOROthiazide [Hydrochlorothiazide] 12.5 mg PO DAILY #30 tablet Lidocaine Patch [Lidoderm 5% patch] 1 each TP DAILY 10 Days #10 adh..patch Pantoprazole [Protonix] 40 mg PO BID 30 Days #60 tab Sucralfate [Carafate] 1 gm PO TIDAC 30 Days #90 udc Home Medications: Lidocaine Patch [Lidoderm 5% patch] 1 each TP DAILY 10 Days #10 adh..patch 12/08 [Rx] Pantoprazole [Protonix] 40 mg PO BID 30 Days #60 tab 12/08/17 [Rx] Sucralfate [Carafate] 1 gm PO TIDAC 30 Days #90 udc 12/08/17 [Rx] hydroCHLOROthiazide [Hydrochlorothiazide] 12.5 mg PO DAILY #30 tablet 12/08/17 [ Rx] Allergies/Adverse Reactions: 3 Allergy/AdvReac Type Severity Reaction Status Date / Time ondansetron Allergy Nausea Verified 12/03/17 00:27 Date of admission: 12/03/17 10:40 Primary care physician: PCP NONE Consults: 12/03/17 11:35 Consult to Straightener And Aligner [CONS] Routine Reason for SW Consult: possibly homeless 12/05/17 13:23 Consult to Gastroenterology [CONS] Routine Consulting Provider: Gastroenterology Ana [facility] Reason for Consult: Abd pain- possible GI bleed Time Notified: 13:26 Call Completed: Yes 12/07/17 02:37 Consult to Invasive Line Access Team [CONS] Stat Reason for Consult: Lost IV access with multipe attempts to get a new one. Past due for IV vancomycin. Line Type: EPIV Discharging clinician: Leatha Vu Anticipated date of discharge: 12/08/17 - Constitutional Vitals: Temp Pulse Resp BP Pulse Ox 98.3 F 89 16 145/81 96 12/08/17 07:31 12/08/17 07:31 12/08/17 07:31 12/08/17 07:31 12/08/17 07:31 General appearance: Present: disheveled, A&O X 3, no acute distress, answers questions appropriately. Absent: cooperative, pleasant - Head Head exam: Present: atraumatic, normocephalic - Eye Eye exam: Present: PERRL, conjuntiva pink, sclera anicteric Pupils: Present: PERRL - Neck Neck exam general surgery: Present: supple, trachea midline. Absent: lymphadenopathy - Respiratory Respiratory exam: Present: CTAB. Absent: accessory muscle use, rales, rhonchi, wheezes - Cardiovascular Cardiovascular exam: Present: RRR, +S1, +S2. Absent: diastolic murmur, gallop, rubs, systolic murmur - GI/Abdominal GI/Abdominal exam: Present: normal bowel sounds, soft, no peritoneal signs. Absent: distended, guarding, rebound, tenderness - Extremities Exam Extremities exam: Present: warm, radial pulses palpable and symmetrical. Absent : calf tenderness, cyanotic, pedal edema - Neurological Exam Neurological exam: Present: CN II-XII intact, oriented X3, no focal deficits. Absent: pronater drift, facial droop, speech deficit - Skin Skin exam: Present: dry, intact, normal color, warm - Patient Status Disposition: Home, Self-Care Condition: Fair Functional capacity at discharge: independent ambulation Overall status at discharge: patient is progressing back to baseline - Discharge Instructions Instructions: Diet for Ulcers and Gastritis (GEN), Seasoning Without Salt (DC) , Acute Abdominal Pain (DC), Chronic Hypertension (DC), Low Sodium Diet (DC) Follow Up With: Shiva Saunders MD [Partnered Physician] - (Appointment has been requested, our offices will call you with an appointment time and date. Thank You. ) Carli Skelton CNP [Advanced Practice Nurse] - (Appointment has been webrequested. Our offices will call you with an appointment time and date.) NONE,PCP [Primary Care Provider] - - Diet and Activity Activity: increase activity as tolerated Diet: low salt diet
[2017-12-08 11:15] VITALS: BP 153/84
[2017-12-08] MEDS ORDERED: Aminoglycoside Consult 1 EACH MC ONE (13:30)
== END 2017-12-08 13:31 | disposition home or self-care (01) ==
LOC: 3BNU 08:51 → EMEROO 08:51 → 3BNU 11:03
PROVIDERS: ADMIT Hospitalist; ATTEND Registered Nurse
PROC: ENDOEBX (2017-12-06 14:30)

== ENCOUNTER 2017-12-17 20:52 | Inpatient (IN) ==
[2017-12-17 22:26] LABS: Alanine Aminotransferase 39 Units/L (7-52); Albumin 4.4 g/dL (3.5-5.7); Albumin/Globulin Ratio 1.6 (1.1-2.2); Alkaline Phosphatase 80 Units/L (34-104); Amylase 62 Units/L (29-103); Aspartate Amino Transferase 29 Units/L (13-39); BUN/Creatinine Ratio 9 (6-26); Bilirubin,Direct 0.2 mg/dL (0.0-0.2); Bilirubin,Indirect 0.9 mg/dL (0.0-1.2); Bilirubin,Total 1.1 mg/dL (0.3-1.0); Blood Urea Nitrogen 9 mg/dL (6-20); Calcium 9.7 mg/dL (8.6-10.3); Carbon Dioxide 31 mEq/L (23-29); Chloride 98 mEq/L (98-107); Globulin 2.7 g/dL (2.4-3.5); Glucose 122 mg/dL (70-105); Lipase 185 Units/L (11-82); Osmolality,Calculated 284 (280-300); Potassium 2.9 mEq/L (3.5-5.1); Sodium 137 mEq/L (136-145); Total Protein 7.1 g/dL (6.4-8.9); eGFR For African Americans > 60 (> 60); eGFR For Non-African Americans > 60 (> 60)
[2017-12-17 22:39] LABS: Bilirubin,Urine Negative (Negative); Blood,Urine Negative (Negative); Clarity,Urine Turbid (Clear); Color,Urine Yellow (Yellow); Glucose,Urine (UA) Normal (Normal); Ketones,Urine Negative (Negative); Leukocyte Esterase,Urine Negative (Negative); Nitrite,Urine Negative (Negative); Protein,Urine Trace mg/dL (Neg-Trace); Specific Gravity,Urine 1.019 (1.010-1.025); Urobilinogen,Urine Normal (Normal)
[2017-12-17 22:40] LABS: Bacteria,Urine None Seen per hpf (None-Few); Hyaline Casts,Urine None Seen per lpf (None-Few); RBC,Urine 0-3 per hpf (0-3); WBC,Urine 0-3 per hpf (0-3)
[2017-12-17 22:53] LABS: Amorphous Sediment,Urine Moderate (Few); Squamous Epithelial Cell,Urine Few per lpf (None-Few)
[2017-12-17 22:53] LABS: Basophils # 0.1 K/mcL (0.0-0.2); Basophils % 0.3 %; Eosinophils # 0.2 K/mcL (0.0-0.6); Eosinophils % 1.1 %; Hematocrit 50.3 % (37.5-50.1); Hemoglobin 17.7 g/dL (12.9-16.9); Immature Granulocytes % 0.6 % (0-4); Lymphocytes # 2.4 K/mcL (0.6-4.6); Lymphocytes % 13.6 %; Mean Corpuscular HGB Conc 35.2 g/dL (31.6-35.5); Mean Corpuscular Hemoglobin 31.6 pg (28.0-33.3); Mean Corpuscular Volume 89.7 fL (83.0-100.0); Monocytes # 1.1 K/mcL (0.0-1.3); Monocytes % 6.1 %; Neutrophils # 13.6 K/mcL (1.6-8.9); Platelet Count 309 K/mcL (140-400); Red Blood Count 5.61 M/mcL (4.19-5.50); Red Cell Distribution Width 12.5 % (11.5-14.5); Segmented Neutrophils % 78.3 %
[2017-12-17] MEDS ORDERED: 0.9 % Sodium Chloride 1,000 ML IVC ONE (23:00)
[2017-12-17] MEDS ORDERED: Promethazine 25 MG in 0.9 % Sodium Chloride 50 ML IVPB ONE (23:00)
[2017-12-17] MEDS ORDERED: *HR* Nalbuphine 20 MG/ML AMPUL IVP ONE (23:00)
[2017-12-17] MEDS ORDERED: Isovue-370 500 ML INFUS..BTL IV ONE (23:01)
--- NOTE | 2017-12-18 00:24 | Emergency Department Note ---
Disposition Clinical Impression: Abdominal pain Qualifiers: Abdominal location: generalized Qualified Code(s): R10.84 - Generalized abdominal pain Leukocytosis Qualifiers: Leukocytosis type: unspecified Qualified Code(s): D72.829 - Elevated white blood cell count, unspecified Disposition: Admitted As Inpatient Condition: Undetermined Referrals: NONE,PCP [Primary Care Provider] - Abdominal Pain HPI - General Chief Complaint: ED Abdominal Pain Stated Complaint: n/v x2 days Time Seen by Provider: 12/17/17 21:44 Source: patient Mode of arrival: private vehicle Limitations: no limitations Nursing Notes Reviewed: Yes Vital Signs Reviewed: Yes - History of Present Illness HPI Narrative: 42-year-old concentric appearing male with a past medical history of chronic pancreatitis, hepatitis C, esophageal ulcers, short bowel syndrome, nephrectomy presents to the emergency department for evaluation of nausea and vomiting for the last 2 days. Patient states he was seen here on 12/09 for the same complaints however he has never gotten better and in fact in the last 2-3 days he states his gotten considerably worse to the point that it is very difficult for him to drink any fluids or keep anything down. He states he is continuously nauseous and vomiting everything they hit systemic. He states he has noticed a little bit of blood in his vomit. He states subjective fevers and chills stating that he gets very hot and sweaty and then gets very cold which has happened within the last 2-3 days. He denies shortness of breath, dyspnea, coughing up sputum, chest pain, edema, palpitations, constipation, diarrhea, bloody stool, genitourinary complaints. Pt Subjective Complaint: abdominal pain Onset (ago): year(s) Consistency: constant, intermittent, Worsening Location: RUQ, epigastric Pain Severity: severe Pain Scale: 7 Quality: cramping, stabbing, sharp Radiation: none Migration to: other (All over) Improves with: nothing Worsens with: eating, bowel movement, vomiting, movement Context: history of similar episodes Associated symptoms: Reports: nausea, vomiting, fever, chills Treatments prior to arrival: NSAIDs, OTC medications, antacids - Related Data Previous Rx's Medication Instructions Recorded Lidocaine Patch [Lidoderm 5% patch] 1 each TP DAILY 10 Days #10 12/08/17 adh..patch Pantoprazole [Protonix] 40 mg PO BID 30 Days #60 tab 12/08/17 Sucralfate [Carafate] 1 gm PO TIDAC 30 Days #90 udc 12/08/17 hydroCHLOROthiazide 12.5 mg PO DAILY #30 tablet 12/08/17 [Hydrochlorothiazide] Allergies Allergy/AdvReac Type Severity Reaction Status Date / Time ondansetron Allergy Nausea Verified 12/17/17 21:07 All systems ED: reviewed and negative except as stated. Review of Systems: As Per HPI Abdominal Pain PMH - Past Medical History Medical history: Reports: hepatitis, hypertension, other Male Surgical History: Reports: other Psychiatric history: Reports: anxiety, bipolar, depression, prior suicide attempt, schizophrenia - Social History Smoking status: Current every day smoker Alcohol use: Reports: rarely Drug use: Reports: marijuana Physical Exam - General Limitations: no limitations General appearance: alert, in distress, cachectic - Head Head exam: atraumatic, normocephalic, normal inspection - Eye Eye exam: Present: normal appearance, PERRL, EOMI - ENT ENT exam: mucous membranes moist - Neck Neck exam: Present: normal inspection, full ROM, trachea midline - Chest Chest inspection: Present: normal inspection, symmetric chest wall rise - Respiratory Respiratory exam: Present: normal lung sounds bilaterally - Cardiovascular Cardiovascular exam: Present: regular rate, normal rhythm, normal heart sounds - Abdominal Exam Abdominal exam: Present: soft, tenderness, hyperactive bowel sounds, scar. Absent: distention, guarding, rebound, rigidity, organomegaly, mass Abdominal tenderness: Present: RUQ, RLQ, LUQ, LLQ, epigastrium, moderate, severe - Extremities Exam Extremities exam: Present: normal inspection, full ROM. Absent: tenderness, pedal edema - Expanded Lower Extremity Exam Gait: observed and normal - Back Exam Back exam: Present: normal inspection, full ROM. Absent: tenderness - Neurological Exam Neurological exam: Present: alert, oriented X3 - Psychiatric Psychiatric exam: Present: normal affect, normal mood - Skin Skin exam: Present: warm, dry, intact, normal color Course Course Narrative: 42-year-old concentric appearing male with a past medical history of chronic pancreatitis, hepatitis C, esophageal ulcers, short bowel syndrome, nephrectomy presents to the emergency department for evaluation of nausea and vomiting for the last 2 days. Patient states he was seen here on 12/09 for the same complaints however he has never gotten better and in fact in the last 2-3 days he states his gotten considerably worse to the point that it is very difficult for him to drink any fluids or keep anything down. He states he is continuously nauseous and vomiting everything they hit systemic. He states he has noticed a little bit of blood in his vomit. He states subjective fevers and chills stating that he gets very hot and sweaty and then gets very cold which has happened within the last 2-3 days. He denies shortness of breath, dyspnea, coughing up sputum, chest pain, edema, palpitations, constipation, diarrhea, bloody stool, genitourinary complaints. Cachetic appearing, frail, chronically ill appearing male laying on the cot with a blanket over top of his head, respirations are easy and even, appears in mild distress, abdomen, and on the bed to avoid stretching. Exam revealed exquisitely tender abdomen particularly in the right upper quadrant but complains of excruciating pain with palpation to any area of the abdomen. We will get labs, CT of abdomen, urinalysis. Concern for pancreatitis, bowel obstruction, cholecystitis. Attending Dr. Cisneros has had while on face time with the patient and is agreeable to plan of care. - Reevaluation(s) Reevaluation #1: Leukocytosis 17.3 with a small shift and lipase 185. These are marked elevations from labs on 12/09/17. CT without evidence of pancreatitis, cholecystitis, bowel obstruction or other acute processes. Patient continues to suffer from abdominal pain as well as nausea but has not had any vomiting since he has been here. There has been no change in physical assessment. We will draw blood cultures and lactate. Plan for admission for abdominal pain, leukocytosis. Spoke with hospitalist agrees and the patient. Patient agreeable to plan. Time: 02:00 Vital Signs Temperature 97.6 F 12/17/17 21:07 Pulse Rate 70 12/17/17 21:07 Respiratory Rate 16 12/17/17 21:07 Blood Pressure 167/100 12/17/17 21:07 O2 Sat by Pulse Oximetry 97 12/17/17 21:07 Temperature 97.6 F 12/17/17 21:07 Pulse Rate 70 12/17/17 21:07 Respiratory Rate 16 12/17/17 21:07 Blood Pressure 167/100 12/17/17 21:07 O2 Sat by Pulse Oximetry 97 12/17/17 21:07 Oxygen Delivery Oxygen Delivery Room Air Abdominal Pain - Lab Data Result diagrams: 12/17/17 22:39 12/17/17 21:58 Lab Results 12/17/17 12/17/17 12/17/17 Range/Units 21:58 22:31 22:39 WBC 17.3 H (4.3-11.1) K/mcL RBC 5.61 H (4.19-5.50) M/mcL Hgb 17.7 H (12.9-16.9) g/dL Hct 50.3 H (37.5-50.1) % MCV 89.7 (83.0-100.0) fL MCH 31.6 (28.0-33.3) pg MCHC 35.2 (31.6-35.5) g/dL RDW 12.5 (11.5-14.5) % Plt Count 309 (140-400) K/mcL MPV 10.0 (9.4-12.4) fL Immature Gran % 0.6 (0-4) % Seg Neutrophils % 78.3 % Lymphocytes % 13.6 % Monocytes % 6.1 % Eosinophils % 1.1 % Basophils % 0.3 % Neutrophils # 13.6 H (1.6-8.9) K/mcL Lymphocytes # 2.4 (0.6-4.6) K/mcL Monocytes # 1.1 (0.0-1.3) K/mcL Eosinophils # 0.2 (0.0-0.6) K/mcL Basophils # 0.1 (0.0-0.2) K/mcL Sodium 137 (136-145) mEq/L Potassium 2.9 L (3.5-5.1) mEq/L Chloride 98 (98-107) mEq/L Carbon Dioxide 31 H (23-29) mEq/L BUN 9 (6-20) mg/dL Creatinine 1.01 (0.70-1.30) mg/dL Est GFR ( Amer) > 60 (> 60) Est GFR (Non-Af Amer) > 60 (> 60) BUN/Creatinine Ratio 9 (6-26) Glucose 122 H (70-105) mg/dL Calculated Osmolality 284 (280-300) Calcium 9.7 (8.6-10.3) mg/dL Total Bilirubin 1.1 H (0.3-1.0) mg/dL Direct Bilirubin 0.2 (0.0-0.2) mg/dL Indirect Bilirubin 0.9 (0.0-1.2) mg/dL AST 29 (13-39) Units/L ALT 39 (7-52) Units/L Alkaline Phosphatase 80 (34-104) Units/L Serum Total Protein 7.1 (6.4-8.9) g/dL Albumin 4.4 (3.5-5.7) g/dL Globulin 2.7 (2.4-3.5) g/dL Albumin/Globulin Ratio 1.6 (1.1-2.2) Amylase 62 (29-103) Units/L Lipase 185 H (11-82) Units/L Urine Color Yellow (Yellow) Urine Clarity Turbid A (Clear) Urine pH 8.0 (5.0-8.0) pH Units Ur Specific [place] 1.019 (1.010-1.025) Urine Protein Trace (Neg-Trace) mg/dL Urine Glucose (UA) Normal (Normal) mg/dL Urine Ketones Negative (Negative) mg/dL Urine Blood Negative (Negative) Urine Nitrite Negative (Negative) Urine Bilirubin Negative (Negative) Urine Urobilinogen Normal (Normal) mg/dL Ur Leukocyte Esterase Negative (Negative) Urine Microscopic RBC 0-3 (0-3) per hpf Urine Microscopic WBC 0-3 (0-3) per hpf Ur Squamous Epith Cells Few (None-Few) per lpf Amorphous Sediment Moderate H (Few) Urine Bacteria None Seen (None-Few) per hpf Hyaline Casts None Seen (None-Few) per lpf Urine Yeast Test Not Performed Ur Culture Indicated? NO (NO)
--- NOTE | 2017-12-18 01:11 | Emergency Department Note ---
Disposition Clinical Impression: Abdominal pain, Leukocytosis Disposition: Admitted As Inpatient Condition: Undetermined General Adult HPI - General Chief complaint: ED Abdominal Pain Stated complaint: n/v x2 days Time Seen by Provider: 12/17/17 21:44 Source: patient Mode of arrival: private vehicle Limitations: no limitations Nursing Notes Reviewed: Yes Vital Signs Reviewed: Yes - History of Present Illness Pain Scale: 7 - Related Data Previous Rx's Medication Instructions Recorded Lidocaine Patch [Lidoderm 5% patch] 1 each TP DAILY 10 Days #10 12/08/17 adh..patch Pantoprazole [Protonix] 40 mg PO BID 30 Days #60 tab 12/08/17 Sucralfate [Carafate] 1 gm PO TIDAC 30 Days #90 udc 12/08/17 hydroCHLOROthiazide 12.5 mg PO DAILY #30 tablet 12/08/17 [Hydrochlorothiazide] Allergies Allergy/AdvReac Type Severity Reaction Status Date / Time ondansetron Allergy Nausea Verified 12/17/17 21:07 Past Medical History - Past Medical History Medical history: Reports: hepatitis, hypertension, other Surgical history: Reports: colectomy, other (right nephrectomy) Psychiatric history: Reports: anxiety, bipolar, depression, prior suicide attempt, schizophrenia - Social History Smoking Status: Current every day smoker Smokeless Tobacco Status: No Alcohol use: Reports: rarely Drug use: Reports: marijuana Physical Exam - General Limitations: no limitations General appearance: alert, in distress, cachectic Course Vital Signs Temperature 97.6 F 12/17/17 21:07 Pulse Rate 70 12/17/17 21:07 Respiratory Rate 16 12/17/17 21:07 Blood Pressure 167/100 12/17/17 21:07 O2 Sat by Pulse Oximetry 97 12/17/17 21:07 Temperature 97.6 F 12/17/17 21:07 Pulse Rate 70 12/17/17 21:07 Respiratory Rate 16 12/17/17 21:07 Blood Pressure 167/100 12/17/17 21:07 O2 Sat by Pulse Oximetry 97 12/17/17 21:07 Oxygen Delivery Oxygen Delivery Room Air Medical Decision Making - Lab Data Result diagrams: 12/17/17 22:39 12/17/17 21:58 Lab Results 12/17/17 12/17/17 12/17/17 Range/Units 21:58 22:31 22:39 WBC 17.3 H (4.3-11.1) K/mcL RBC 5.61 H (4.19-5.50) M/mcL Hgb 17.7 H (12.9-16.9) g/dL Hct 50.3 H (37.5-50.1) % MCV 89.7 (83.0-100.0) fL MCH 31.6 (28.0-33.3) pg MCHC 35.2 (31.6-35.5) g/dL RDW 12.5 (11.5-14.5) % Plt Count 309 (140-400) K/mcL MPV 10.0 (9.4-12.4) fL Immature Gran % 0.6 (0-4) % Seg Neutrophils % 78.3 % Lymphocytes % 13.6 % Monocytes % 6.1 % Eosinophils % 1.1 % Basophils % 0.3 % Neutrophils # 13.6 H (1.6-8.9) K/mcL Lymphocytes # 2.4 (0.6-4.6) K/mcL Monocytes # 1.1 (0.0-1.3) K/mcL Eosinophils # 0.2 (0.0-0.6) K/mcL Basophils # 0.1 (0.0-0.2) K/mcL Sodium 137 (136-145) mEq/L Potassium 2.9 L (3.5-5.1) mEq/L Chloride 98 (98-107) mEq/L Carbon Dioxide 31 H (23-29) mEq/L BUN 9 (6-20) mg/dL Creatinine 1.01 (0.70-1.30) mg/dL Est GFR ( Amer) > 60 (> 60) Est GFR (Non-Af Amer) > 60 (> 60) BUN/Creatinine Ratio 9 (6-26) Glucose 122 H (70-105) mg/dL Calculated Osmolality 284 (280-300) Calcium 9.7 (8.6-10.3) mg/dL Total Bilirubin 1.1 H (0.3-1.0) mg/dL Direct Bilirubin 0.2 (0.0-0.2) mg/dL Indirect Bilirubin 0.9 (0.0-1.2) mg/dL AST 29 (13-39) Units/L ALT 39 (7-52) Units/L Alkaline Phosphatase 80 (34-104) Units/L Serum Total Protein 7.1 (6.4-8.9) g/dL Albumin 4.4 (3.5-5.7) g/dL Globulin 2.7 (2.4-3.5) g/dL Albumin/Globulin Ratio 1.6 (1.1-2.2) Amylase 62 (29-103) Units/L Lipase 185 H (11-82) Units/L Urine Color Yellow (Yellow) Urine Clarity Turbid A (Clear) Urine pH 8.0 (5.0-8.0) pH Units Ur Specific [place] 1.019 (1.010-1.025) Urine Protein Trace (Neg-Trace) mg/dL Urine Glucose (UA) Normal (Normal) mg/dL Urine Ketones Negative (Negative) mg/dL Urine Blood Negative (Negative) Urine Nitrite Negative (Negative) Urine Bilirubin Negative (Negative) Urine Urobilinogen Normal (Normal) mg/dL Ur Leukocyte Esterase Negative (Negative) Urine Microscopic RBC 0-3 (0-3) per hpf Urine Microscopic WBC 0-3 (0-3) per hpf Ur Squamous Epith Cells Few (None-Few) per lpf Amorphous Sediment Moderate H (Few) Urine Bacteria None Seen (None-Few) per hpf Hyaline Casts None Seen (None-Few) per lpf Urine Yeast Test Not Performed Ur Culture Indicated? NO (NO) Attestation Statement - Attestation Attestation: I, Matthew Cisneros MD, personally evaluated this patient and discussed their management with the midlevel provicer, PAC/SALES EXECUTIVE. I reviewed the midlevel provider 's note and agree with the documented findings, medical decision making, and plan of care. 42-year-old male with history of chronic pancreatitis presents to the emergency department with a complaint of upper abdominal pain with nausea and vomiting for 2 weeks prior to arrival. He was admitted here about 2 weeks ago for this problem. He states the symptoms have become much worse over the past 3 days with increased pain and increased vomiting. On examination patient is a well-developed thin male in no acute distress but does appear to be in moderate discomfort. He is alert and oriented 3. There is no cyanosis or diaphoresis. Breath sounds are clear and equal bilaterally. Heart regular rate and rhythm. Abdomen is soft with slightly increased bowel sounds. There is moderate epigastric and left upper quadrant tenderness on direct palpation. No guarding or rebound tenderness. No CVA tenderness. Labs reviewed. WBC 17.3. Lipase 185. Potassium 2.9. CT of the abdomen and pelvis showed no acute abnormality. The hospitalist, Dr. Rosas, was consulted and accepted admission of the patient.
[2017-12-18] MEDS: *HR* Nalbuphine 10 MG/ML AMPUL IV ONE ×2 (01:35→02:08)
[2017-12-18] MEDS ORDERED: Meropenem 1,000 MG in Water for inj. (sterile) 20 ML 10 ML IVP ONE (01:46)
[2017-12-18] MEDS ORDERED: 0.9 % Sodium Chloride w KCl 20 MEQ/1,000 ML MLS IVC SCH (02:00)
[2017-12-18] MEDS ORDERED: Acetaminophen 325 MG TABLET PO PRN (03:33)
[2017-12-18] MEDS ORDERED: *HR* Promethazine 25 MG/ML VIAL IVP PRN (03:33)
[2017-12-18] MEDS ORDERED: Naloxone 0.4 MG/ML INJ IVP PRN (03:33)
[2017-12-18] MEDS ORDERED: Potassium Chloride 40 MEQ, Lidocaine 1% 2 ML in D5% in Water 500 ML IVPB ONE (03:47)
--- NOTE | 2017-12-18 03:47 | Internal Med History&Physical ---
Date of Encounter: 12/18/17 Time of Encounter: 03:00 Internal Medicine - H&P: HPI Chief complaint: Abdominal pain, nausea, vomiting Admitted From: Home Plans for Post Hospital Care: Home History of present illness: Mr. Patel is a 42 year old male presented to ER for abdominal pain, nausea, and vomiting for 2 weeks and worsening for 2 days. Past medical history is significant for chronic pancreatitis, peptic ulcer, colitis, and patient has only one kidney. Patient said he has abdominal pain since 12/04, he was admitted about 2 weeks ago and was discharged to home as symptoms improves. Since 2 days ago, he started having worsening nausea, vomiting, and cramping abdominal pain on left upper and lower quadrant. Patient denies diarrhea. Patient can pass gas. He has a subjective fever with always feel cold. Patient did notice some trace of blood in vomiting today. Patient can not eat at all as vomiting persists. He was admitted for further management. I have discussed the CODE STATUS with this patient. He is AAO 3. He clearly told me he does not want CPR or intubation. DNR DNI placed. Past Med Surg Social Fam HX - Past Medical History Medical history: hepatitis, hypertension, other Psychiatric history: anxiety, bipolar, depression, prior suicide attempt, schizophrenia - Past Surgical History Surgical History: colectomy, other - Social History Smoking Status: Current every day smoker Packs per day: 1 Smokeless Tobacco Status: No Alcohol use: rarely Drug use: marijuana - Family History Mother Hx Family Cardiac Disorders: Yes Hx Family Cancer: Yes (Breast) Father Hx Family Cardiac Disorders: Yes Hx Family Endocrine Disorder: Yes Internal Medicine - H&P: Meds Lidocaine Patch [Lidoderm 5% patch] 1 each TP DAILY 10 Days #10 adh..patch 12/08 [Rx] Pantoprazole [Protonix] 40 mg PO BID 30 Days #60 tab 12/08/17 [Rx] Sucralfate [Carafate] 1 gm PO TIDAC 30 Days #90 udc 12/08/17 [Rx] hydroCHLOROthiazide [Hydrochlorothiazide] 12.5 mg PO DAILY #30 tablet 12/08/17 [ Rx] 3 Allergy/AdvReac Type Severity Reaction Status Date / Time ondansetron Allergy Nausea Verified 12/17/17 21:07 All Systems PM: A 10-system review of systems was performed and is negative for pertinent findings except as documented above in the HPI. - Constitutional Vitals: Temp Pulse Resp BP Pulse Ox 98.1 F 77 16 122/79 97 12/18/17 02:42 12/18/17 02:42 12/18/17 02:42 12/18/17 02:42 12/18/17 03:11 General appearance: Present: A&O X 3, no acute distress, answers questions appropriately - Head Head exam: Present: atraumatic, normocephalic - Eye Eye exam: Present: PERRL, conjuntiva pink, sclera anicteric Pupils: Present: PERRL - Neck Neck exam general surgery: Present: supple, trachea midline. Absent: lymphadenopathy - Respiratory Respiratory exam: Present: CTAB. Absent: accessory muscle use, rales, rhonchi, wheezes - Cardiovascular Cardiovascular exam: Present: RRR, +S1, +S2. Absent: diastolic murmur, gallop, rubs, systolic murmur - GI/Abdominal GI/Abdominal exam: Present: normal bowel sounds, soft, tenderness (Tenderness on left upper and lower quadrant, no guarding or rebound), no peritoneal signs. Absent: distended - Extremities Exam Extremities exam: Present: warm, radial pulses palpable and symmetrical. Absent : calf tenderness, cyanotic, pedal edema - Neurological Exam Neurological exam: Present: CN II-XII intact, oriented X3, no focal deficits. Absent: pronater drift, facial droop, speech deficit - Skin Skin exam: Present: dry, intact Internal Med - H&P Results - Labs CBC & Chem 7: 12/17/17 22:39 12/17/17 21:58 - Assessment and plan (1) GI bleed Current Visit: Yes Status: Acute Assessment and plan: Patient has noticed the blood in vomiting. History of peptic ulcer. Need to rule out GI bleed. - Place patient on nothing by mouth, IV fluid. IV PPI. - Patient has stable hemoglobin and vitals right now, we will continue closely monitoring. - Consider surgical consult in a.m.. Qualifiers: GI bleed type/associated pathology: unspecified peptic ulcer Qualified Code (s): K27.4 - Chronic or unspecified peptic ulcer, site unspecified, with hemorrhage (2) Abdominal pain Current Visit: Yes Status: Acute Assessment and plan: Etiology is undetermined. Possibly due to pancreatitis or peptic ulcer disease - Continue nothing by mouth, IV fluid, and IV PPI - Pain management Qualifiers: Abdominal location: generalized Qualified Code(s): R10.84 - Generalized abdominal pain (3) DVT prophylaxis Current Visit: No Status: Acute Assessment and plan: EPCD, no heparin because of a suspected GI bleed (4) Tobacco abuse Current Visit: No Status: Acute Assessment and plan: Smoking cessation education (5) Pancreatitis Current Visit: No Status: Chronic Assessment and plan: Patient has chronic pancreatitis. Had increased abdominal pain nausea vomiting. Has mild elevated lipase from baseline. Consider acute on chronic pancreatitis - Continue IV fluid, pain medication - Patient had US gallbladder and MRCP previously, no obstructive bile duct Qualifiers: Chronicity: chronic Pancreatitis type: unspecified pancreatitis type Qualified Code(s): K86.1 - Other chronic pancreatitis (6) Nausea and vomiting Current Visit: No Status: Resolved Assessment and plan: Continue symptomatic treatment Qualifiers: Vomiting type: unspecified Vomiting Intractability: non-intractable Qualified Code(s): R11.2 - Nausea with vomiting, unspecified - Time Spent With Patient Total time spent is greater than 50% in coordination of care (as documented) at patient's floor/unit and/or counseling patient: 40 minutes Greater than 35 minutes
[2017-12-18] MEDS: 0.9 % Sodium Chloride 1,000 ML IVC SCH ×2 (03:54→14:22)
[2017-12-18 05:27] LABS: BUN/Creatinine Ratio 10 (6-26); Blood Urea Nitrogen 9 mg/dL (6-20); Calcium 8.2 mg/dL (8.6-10.3); Carbon Dioxide 27 mEq/L (23-29); Chloride 105 mEq/L (98-107); Glucose 97 mg/dL (70-105); Lipase 65 Units/L (11-82); Magnesium 1.7 mg/dL (1.6-2.6); Osmolality,Calculated 287 (280-300); Potassium 3.2 mEq/L (3.5-5.1); Sodium 139 mEq/L (136-145); eGFR For African Americans > 60 (> 60); eGFR For Non-African Americans > 60 (> 60)
[2017-12-18] MEDS: Pantoprazole 40 MG VIAL IVP SCH ×2 (06:08→17:57)
[2017-12-18 06:13] LABS: Basophils % 0.3 %; Eosinophils # 0.2 K/mcL (0.0-0.6); Eosinophils % 1.6 %; Hematocrit 40.9 % (37.5-50.1); Immature Granulocytes % 0.5 % (0-4); Lymphocytes # 2.6 K/mcL (0.6-4.6); Lymphocytes % 22.5 %; Mean Corpuscular HGB Conc 34.5 g/dL (31.6-35.5); Mean Corpuscular Hemoglobin 30.8 pg (28.0-33.3); Mean Corpuscular Volume 89.3 fL (83.0-100.0); Mean Platelet Volume 9.9 fL (9.4-12.4); Monocytes # 0.8 K/mcL (0.0-1.3); Neutrophils # 7.8 K/mcL (1.6-8.9); Platelet Count 245 K/mcL (140-400); Red Blood Count 4.58 M/mcL (4.19-5.50); Red Cell Distribution Width 12.7 % (11.5-14.5); Segmented Neutrophils % 68.1 %
[2017-12-18 06:21] LABS: Hemoglobin 14.1 g/dL (12.9-16.9)
[2017-12-18] MEDS: OXYCODONE Oral CONC 10 MG/0.5 ML ORAL.SYG SL PRN ×3 (07:31→21:11)
--- NOTE | 2017-12-18 08:18 | General Surgery Consult Note ---
<Sylvester Hammond - Last Filed: 12/18/17 13:54> Date of Encounter: 12/18/17 Time of Encounter: 08:19 Assessment and Plan (1) History of esophageal ulcer Current Visit: Yes Status: Acute Plan: IV fluids Patient stable, is not anemic and has had a recent EGD 12/07 without evidence of bleed Can advance diet as tolerated No current plan to do EGD by Surgical team, can follow-up with GI at his already scheduled appointment (2) Abdominal pain Current Visit: Yes Status: Acute Continue Zofran, advance diet as tolerated (3) Tobacco abuse Current Visit: No Status: Acute 1-3PPD, esophageal ulceration per 12/07/17 EGD, needs to quit/cut back/nicotine replacement therapy History of Present Illness Consult date: 12/18/17 Reason for consult: other (N/V/hematemesis) Requesting physician: Kevin James History of present illness: 42M with 2 week onset of nausea, vomiting, abdominal pain which has worsened in the last 2 days. PMH significant for GERD on Prilosec, chronic pancreatitis, peptic ulcer disease, colitis. Recent EGD 12/[address] Saunders showed severe circumferential ulceration of the middle and distal 3rd esophagus without bleed. Patient is a current every day smoker 1-3PPD. He states his nausea and vomiting have improved somewhat, he has mild abdominal pain, he has recent constipation is able to pass gas, he denies blood in his stool, he denies family or self history of colon cancer. He says he had a colonoscopy here recently, chart review only shows an EGD. Past Med Surg Social Fam HX - Past Medical History Medical history: hepatitis, hypertension, other Psychiatric history: anxiety, bipolar, depression, prior suicide attempt, schizophrenia - Past Surgical History Surgical History: colectomy, other - Social History Smoking Status: Current every day smoker Packs per day: 1 Smokeless Tobacco Status: No Alcohol use: rarely Drug use: marijuana - Family History Mother Hx Family Cardiac Disorders: Yes Hx Family Cancer: Yes (Breast) Father Hx Family Cardiac Disorders: Yes Hx Family Endocrine Disorder: Yes Medications and Allergies Pantoprazole [Protonix] 40 mg PO BID 30 Days #60 tab 12/08/17 [Rx] Dicyclomine [Bentyl] 10 mg PO QID 12/18/17 [History] Promethazine [Phenergan] 25 mg PO Q4-6H PRN 12/18/17 [History] 3 Allergy/AdvReac Type Severity Reaction Status Date / Time ondansetron Allergy Nausea Verified 12/17/17 21:07 Review of Systems All systems PM: reviewed and no additional remarkable complaints except as stated All systems PM: The remainder of the systems were reviewed and are negative - Constitutional fatigue, no fever(s) - EENT Nose, mouth and throat: no change in voice, no dysphagia - Cardiovascular no chest pain - Respiratory hemoptysis, no dyspnea - Gastrointestinal abdominal pain, constipation, heartburn, hematemesis, no diarrhea, no hematochezia - Neurological no dizziness General Surgery Exam Initial Vital Signs Temp Pulse Resp BP Pulse Ox 97.6 F 70 16 167/100 97 12/17/17 21:07 12/17/17 21:07 12/17/17 21:07 12/17/17 21:07 12/17/17 21:07 - General physical appearance well developed, well nourished, no distress - Eyes normal ocular movement - ENT normal mucosa - Neck no lymphadectomy - Respiratory normal respiratory effort, other (mild diminished breath sounds bilat) - Cardiovascular Cardiovascular exam: Present: regular rhythm, no murmurs/rubs/gallops - Abdomen Abdomen general surgery: Present: soft. Absent: distended, masses, guarding - Integumentary Integumentary general surgery: Present: warm and dry, no abnormal pigmentation - Psychiatric Psychiatric general surgery: Present: appropriate, speech is normal, memory intact Exam Initial Vital Signs Temp Pulse Resp BP Pulse Ox 97.6 F 70 16 167/100 97 12/17/17 21:07 12/17/17 21:07 12/17/17 21:07 12/17/17 21:07 12/17/17 21:07 Results - Labs 12/18/17 05:53 12/18/17 04:38 Abnormal lab results WBC 11.5 K/mcL (4.3-11.1) H 12/18/17 05:53 Potassium 3.2 mEq/L (3.5-5.1) L 12/18/17 04:38 Calcium 8.2 mg/dL (8.6-10.3) L 12/18/17 04:38 Total Bilirubin 1.1 mg/dL (0.3-1.0) H 12/17/17 21:58 Urine Clarity Turbid (Clear) A 12/17/17 22:31 Amorphous Sediment Moderate (Few) H 12/17/17 22:31 Diabetes panel 12/18/17 Range/Units 04:38 Sodium 139 (136-145) mEq/L Potassium 3.2 L (3.5-5.1) mEq/L Chloride 105 (98-107) mEq/L Carbon Dioxide 27 (23-29) mEq/L BUN 9 (6-20) mg/dL Creatinine 0.87 (0.70-1.30) mg/dL Glucose 97 (70-105) mg/dL Calcium 8.2 L (8.6-10.3) mg/dL Calcium panel 12/18/17 Range/Units 04:38 Calcium 8.2 L (8.6-10.3) mg/dL Pituitary panel 12/18/17 Range/Units 04:38 Sodium 139 (136-145) mEq/L Potassium 3.2 L (3.5-5.1) mEq/L Chloride 105 (98-107) mEq/L Carbon Dioxide 27 (23-29) mEq/L BUN 9 (6-20) mg/dL Creatinine 0.87 (0.70-1.30) mg/dL Glucose 97 (70-105) mg/dL Calcium 8.2 L (8.6-10.3) mg/dL Adrenal panel 12/18/17 Range/Units 04:38 Sodium 139 (136-145) mEq/L Potassium 3.2 L (3.5-5.1) mEq/L Chloride 105 (98-107) mEq/L Carbon Dioxide 27 (23-29) mEq/L BUN 9 (6-20) mg/dL Creatinine 0.87 (0.70-1.30) mg/dL Glucose 97 (70-105) mg/dL Calcium 8.2 L (8.6-10.3) mg/dL All other labs normal. Consult Discharge Plan - Plan Referrals: NONE,PCP [Primary Care Provider] - <Elizabeth Deshpande - Last Filed: 12/18/17 16:08> Date of Encounter: 12/18/17 Assessment and Plan (1) Abdominal pain Current Visit: Yes Status: Acute ok to give clears CT scan reviewed pain not consistent with gallbladder only passed a few small clots with emesis 2 days ago, Hb stable, no need for repeat EGD at this time continue PPI therapy and carafate Qualifiers: Abdominal location: generalized Qualified Code(s): R10.84 - Generalized abdominal pain (2) Nausea and vomiting Current Visit: No Status: Resolved since resolved Qualifiers: Vomiting type: unspecified Vomiting Intractability: non-intractable Qualified Code(s): R11.2 - Nausea with vomiting, unspecified (3) History of esophageal ulcer Current Visit: Yes Status: Acute History of Present Illness History of present illness: Patient complains of left of the umbilicus abdominal pain since before . The pain is sharp and comes and goes. No radiation. He had egd by GI on 12/07 showing severe ulceration of mid/distal esophagus. He had nausea and vomiting 2 days ago. He had emesis several times and per patient only twice passed a few very small clots in the emesis. Past Med Surg Social Fam HX - Past Medical History Source: patient Medical history: other (severe esophagitis) Review of Systems All systems PM: reviewed and no additional remarkable complaints except as stated All systems PM: The remainder of the systems were reviewed and are negative General Surgery Exam Initial Vital Signs Temp Pulse Resp BP Pulse Ox 97.6 F 70 16 167/100 97 12/17/17 21:07 12/17/17 21:07 12/17/17 21:07 12/17/17 21:07 12/17/17 21:07 - General physical appearance well nourished, no distress - Eyes PERRL - ENT normal mucosa, normocephalic - Neck trachea midline - Respiratory normal expansion, normal respiratory effort - Cardiovascular Cardiovascular exam: Present: RRR - Abdomen Abdomen general surgery: Present: bowel sounds present, soft, tender (just left of umbilicus) - Integumentary Integumentary general surgery: Present: no abnormal pigmentation - Neurologic Present: CN 2-12 grossly intact - Musculoskeletal Present: normal posture - Psychiatric Psychiatric general surgery: Present: A&Ox3, speech is normal Exam Initial Vital Signs Temp Pulse Resp BP Pulse Ox 97.6 F 70 16 167/100 97 12/17/17 21:07 12/17/17 21:07 12/17/17 21:07 12/17/17 21:07 12/17/17 21:07 Results - Labs 12/18/17 05:53 12/18/17 04:38 Abnormal lab results WBC 11.5 K/mcL (4.3-11.1) H 12/18/17 05:53 Potassium 3.2 mEq/L (3.5-5.1) L 12/18/17 04:38 Calcium 8.2 mg/dL (8.6-10.3) L 12/18/17 04:38 Total Bilirubin 1.1 mg/dL (0.3-1.0) H 12/17/17 21:58 Urine Clarity Turbid (Clear) A 12/17/17 22:31 Amorphous Sediment Moderate (Few) H 12/17/17 22:31 Diabetes panel 12/18/17 Range/Units 04:38 Sodium 139 (136-145) mEq/L Potassium 3.2 L (3.5-5.1) mEq/L Chloride 105 (98-107) mEq/L Carbon Dioxide 27 (23-29) mEq/L BUN 9 (6-20) mg/dL Creatinine 0.87 (0.70-1.30) mg/dL Glucose 97 (70-105) mg/dL Calcium 8.2 L (8.6-10.3) mg/dL Calcium panel 12/18/17 Range/Units 04:38 Calcium 8.2 L (8.6-10.3) mg/dL Pituitary panel 12/18/17 Range/Units 04:38 Sodium 139 (136-145) mEq/L Potassium 3.2 L (3.5-5.1) mEq/L Chloride 105 (98-107) mEq/L Carbon Dioxide 27 (23-29) mEq/L BUN 9 (6-20) mg/dL Creatinine 0.87 (0.70-1.30) mg/dL Glucose 97 (70-105) mg/dL Calcium 8.2 L (8.6-10.3) mg/dL Adrenal panel 12/18/17 Range/Units 04:38 Sodium 139 (136-145) mEq/L Potassium 3.2 L (3.5-5.1) mEq/L Chloride 105 (98-107) mEq/L Carbon Dioxide 27 (23-29) mEq/L BUN 9 (6-20) mg/dL Creatinine 0.87 (0.70-1.30) mg/dL Glucose 97 (70-105) mg/dL Calcium 8.2 L (8.6-10.3) mg/dL All other labs normal. - Imaging CT scan - abdomen: report reviewed, image reviewed CT scan - pelvis: report reviewed US - abdomen: image reviewed - Attending Attestation I examined this patient and my medical decision-making was reviewed with the Resident Physician. I agree with the documented findings, disposition and treatment plan as described except to the extent set forth below.
--- NOTE | 2017-12-18 13:55 | Internal Med Progress Note ---
Date of Encounter: 12/18/17 Time of Encounter: 10:05 - Assessment and plan (1) Abdominal pain Current Visit: Yes Status: Acute Assessment and plan: 2 week history of intermittent, migratory abdominal pain. Recent admission here for the same. CTA performed on December 08 showed multifocal wall thickening in the esophagus with multiple adjacent lymph nodes and multifocal, ill-defined soft tissue along its margins. EGD revealed bleeding ulcer at the GE junction, pathology results are pending. Patient was to follow-up with GI in 1-2 weeks, however he is here and did not make it to the office. Patient also with history of right upper quadrant pain. Ultrasound revealed periportal and pericholecystic edema, which may be related underlying liver disease or pancreatitis. Abdomen is tender diffusely to palpation. Bowel sounds are hypoactive and faint. Patient with mild leukocytosis, lipase has returned to normal limits, 65 today. Urine is negative. Patient has been evaluated again today by GI, patient will have EGD today. Qualifiers: Abdominal location: generalized Qualified Code(s): R10.84 - Generalized abdominal pain (2) Nausea and vomiting Current Visit: No Status: Resolved Assessment and plan: Patient denies vomiting, states that he still has nausea. Patient independently rated at 2/10. States that Phenergan is effective for treatment. Patient reports two-week history. Hypokalemia on admission that is being corrected. Pt denies significant weight loss and other labs are WNL. Continue Phenergan 12.5mg IV q6 h prn Continue gentle IVF hydration Qualifiers: Vomiting type: unspecified Vomiting Intractability: non-intractable Qualified Code(s): R11.2 - Nausea with vomiting, unspecified (3) Pancreatitis Current Visit: No Status: Chronic Assessment and plan: Chronic. Labs WNL. Abdomen soft and tender. Continue pain management, IVF hydration, and antiemetics Pt had recent gallbladder US and MRCP, no obstruction in the bile duct. Qualifiers: Chronicity: chronic Pancreatitis type: unspecified pancreatitis type Qualified Code(s): K86.1 - Other chronic pancreatitis (4) DVT prophylaxis Current Visit: No Status: Acute Assessment and plan: EPCD, no heparin because of a suspected GI bleed (5) Tobacco abuse Current Visit: Yes Status: Chronic Assessment and plan: Current every day smoker. Pt denies need for nicotine replacement therapy. Smoking cessation education completed by admitter, will continue to encourage. (6) GI bleed Current Visit: Yes Status: Acute Assessment and plan: Pt reports hematemasis since discharge on 12/08. History of ulcer per EGD last admission. Pt is NPO, continue IVF, IV PPI. Labs and vitals are stable. Pt with drop in Hgb from 17 to 14, pt did have 1 liter bolus in the ER and is getting IVF for NPO status. Pt is to have EGD today. Qualifiers: GI bleed type/associated pathology: unspecified peptic ulcer Qualified Code (s): K27.4 - Chronic or unspecified peptic ulcer, site unspecified, with hemorrhage - Time Spent With Patient Total time spent is greater than 50% in coordination of care (as documented) at patient's floor/unit and/or counseling patient: less than 15 minutes - Subjective Interval history: Pt was seen and assessed at 1005 a.m. HE reports 2 week history of n/v and migratory abdominal pain. He states that he is unable to keep any po down and denies significant weight loss. He denies headache, dizziness, peripheral edema. Pt states that he would like to try clear liquids, initially I said yes, unaware that he was going to have EGD today. Will advance diet when able. - Constitutional Vitals: Temp Pulse Resp BP Pulse Ox 98.6 F 82 14 103/69 97 12/18/17 11:32 12/18/17 11:32 12/18/17 11:32 12/18/17 11:32 12/18/17 11:32 General appearance: Present: cachectic, cooperative, A&O X 3, pleasant, no acute distress, answers questions appropriately - Head Head exam: Present: atraumatic, normal inspection, normocephalic - Eye Eye exam: Present: normal appearance, conjuntiva pink, sclera anicteric - Neck Neck exam general surgery: Present: normal inspection, supple, trachea midline. Absent: lymphadenopathy, tenderness - Respiratory Respiratory exam: Present: CTAB. Absent: accessory muscle use, decreased breath sounds, rales, respiratory distress, rhonchi, wheezes - Cardiovascular Cardiovascular exam: Present: RRR, +S1, +S2. Absent: diastolic murmur, gallop, rubs, systolic murmur - GI/Abdominal GI/Abdominal exam: Present: normal bowel sounds, soft, tenderness. Absent: distended, hepatomegaly, rebound - Extremities Exam Extremities exam: Present: normal capillary refill, normal inspection, warm, radial pulses palpable and symmetrical. Absent: calf tenderness, cyanotic, pedal edema, tenderness - Neurological Exam Neurological exam: Present: alert, oriented X3, no focal deficits. Absent: motor sensory deficit, facial droop, speech deficit - Skin Skin exam: Present: dry, intact, normal color, warm. Absent: rash Internal Medicine: Result - Labs CBC & Chem 7: 12/18/17 05:53 12/18/17 04:38 Labs: Short CBC 12/18/17 Range/Units 05:53 WBC 11.5 H (4.3-11.1) K/mcL Hgb 14.1 D (12.9-16.9) g/dL Hct 40.9 (37.5-50.1) % Plt Count 245 (140-400) K/mcL Neutrophils # 7.8 (1.6-8.9) K/mcL BMP 12/18/17 04:38 Sodium 139 Potassium 3.2 L Chloride 105 Carbon Dioxide 27 BUN 9 Creatinine 0.87 Glucose 97 Calcium 8.2 L Consult Discharge Plan - Plan Referrals: NONE,PCP [Primary Care Provider] -
[2017-12-18 18:03] LABS: Albumin 3.1 g/dL (3.5-5.7); Albumin/Globulin Ratio 1.6 (1.1-2.2); Bilirubin,Direct 0.2 mg/dL (0.0-0.2); Bilirubin,Indirect 0.7 mg/dL (0.0-1.2); Bilirubin,Total 0.9 mg/dL (0.3-1.0); Globulin 1.9 g/dL (2.4-3.5)
[2017-12-19] MEDS: OXYCODONE Oral CONC 10 MG/0.5 ML ORAL.SYG SL PRN (02:25)
[2017-12-19 05:19] LABS: Basophils % 0.4 %; Eosinophils # 0.2 K/mcL (0.0-0.6); Eosinophils % 1.8 %; Hematocrit 44.4 % (37.5-50.1); Hemoglobin 14.9 g/dL (12.9-16.9); Immature Granulocytes % 0.4 % (0-4); Lymphocytes # 2.9 K/mcL (0.6-4.6); Lymphocytes % 31.6 %; Mean Corpuscular HGB Conc 33.6 g/dL (31.6-35.5); Mean Corpuscular Hemoglobin 31.1 pg (28.0-33.3); Mean Corpuscular Volume 92.7 fL (83.0-100.0); Mean Platelet Volume 10.1 fL (9.4-12.4); Monocytes # 0.7 K/mcL (0.0-1.3); Monocytes % 7.5 %; Neutrophils # 5.4 K/mcL (1.6-8.9); Nucleated Red Blood Cells 0.2 /100 WBC (0); Platelet Count 214 K/mcL (140-400); Red Blood Count 4.79 M/mcL (4.19-5.50); Red Cell Distribution Width 12.7 % (11.5-14.5); Segmented Neutrophils % 58.3 %
[2017-12-19] MEDS: Pantoprazole 40 MG VIAL IVP SCH (05:21)
[2017-12-19 05:42] LABS: BUN/Creatinine Ratio 8 (6-26); Blood Urea Nitrogen 7 mg/dL (6-20); Calcium 8.1 mg/dL (8.6-10.3); Carbon Dioxide 26 mEq/L (23-29); Chloride 109 mEq/L (98-107); Glucose 78 mg/dL (70-105); Osmolality,Calculated 285 (280-300); Potassium 3.4 mEq/L (3.5-5.1); Sodium 139 mEq/L (136-145); eGFR For African Americans > 60 (> 60); eGFR For Non-African Americans > 60 (> 60)
[2017-12-19 15:36] VITALS: BP 119/81
--- NOTE | 2017-12-19 15:40 | Discharge Summary ---
- NOTES TO OUTPATIENT PROVIDER Notes to Outpatient Provider: Pt has been discharged with Zofran ODT for n/v. He will need to follow up for EGD to reevaluate his ulcers. Continue PPI and stop smoking. Date of Encounter: 12/19/17 Time of Encounter: 10:35 - Discharge Diagnosis (1) Abdominal pain Priority: Secondary Status: Acute Comments: Patient reports decrease in abdominal pain and feels better. Leukocytosis has resolved. Amylase and lipase within normal limits. Urine is negative. Patient will need to follow up with GI in another 1-2 weeks. Abdomen is soft, tender to palpation, there are bowel sounds present. He reports it is always tender to palpation. Patient requests that I could send him home with other medication besides tramadol for his abdominal pain. I asked him what he would like to have, he said, "something stronger, a few no and I mean." Due to his daily marijuana use and would be inappropriate prescription, I will encourage him to continue his PPI, Zofran, and stop smoking. Qualifiers: Abdominal location: generalized Qualified Code(s): R10.84 - Generalized abdominal pain (2) Nausea and vomiting Priority: Secondary Status: Resolved Comments: Patient denies nausea and vomiting today. Suspect some of this is cyclical vomiting. Patient reports that he smokes marijuana every day, "as much as I can." Zofran ODT for home. Qualifiers: Vomiting type: unspecified Vomiting Intractability: non-intractable Qualified Code(s): R11.2 - Nausea with vomiting, unspecified (3) Pancreatitis Priority: Secondary Status: Chronic Comments: Patient with chronic pancreatitis. Labs are within normal limits, abdomen is soft, tender to palpation which he states is normal for him. Continue antiemetics and follow-up with GI outpatient. Qualifiers: Chronicity: chronic Pancreatitis type: unspecified pancreatitis type Qualified Code(s): K86.1 - Other chronic pancreatitis (4) DVT prophylaxis Priority: Secondary Status: Acute Comments: EPCDs ordered. (5) Tobacco abuse Priority: Secondary Status: Chronic Comments: Patient is a current every day smoker. Denies need for nicotine replacement therapy. (6) GI bleed Priority: Secondary Status: Suspected Comments: Patient reports hematemesis since prior discharge from the hospital on 12/08. Patient has a history of ulcer EGD last admission. He is able to tolerate food and fluid without any difficulty. Hemoglobin stable and within normal limits. Follow with primary care for continued management, GI for EGD to reevaluate ulcers. Qualifiers: GI bleed type/associated pathology: unspecified peptic ulcer Qualified Code (s): K27.4 - Chronic or unspecified peptic ulcer, site unspecified, with hemorrhage Hospital course: Mr. Patel is a 42 year old male with past medical history of abdominal pain. Patient was readmitted for continued abdominal pain and nausea and vomiting. All symptoms have resolved. Patient was treated with IV fluids, pain medication , PPI, anti-emetics. He states that he is feeling better, he is able to tolerate food, he is ready to go home. He has been evaluated by surgery, will need repeat EGD in the future. Patient has no primary care, will be given the number to try to follow-up. Patient has been encouraged to continue PPI, watch diet, stop smoking. Suspect some of this is cyclical vomiting due to daily, heavy, admitted marijuana use. Patient has improved and is stable, ready for discharge. Discharge discussed with: patient, nurse - Time Spent with Patient Total time spent providing and/or coordinating discharge services: Less than 30 minutes - Discharge Medications Prescriptions: Ondansetron ODT [Zofran ODT] 4 mg PO Q6H #60 tab.rapdis Pantoprazole [Protonix] 40 mg PO BID 30 Days #60 tab Sucralfate [Carafate] 1 gm PO QIDAC #120 tablet Home Medications: Dicyclomine [Bentyl] 10 mg PO QID 12/18/17 [History] Promethazine [Phenergan] 25 mg PO Q4-6H PRN 12/18/17 [History] Calcium Carbonate [Tums] 1,000 mg PO TID tab.chew 12/19/17 [Rx] Ondansetron ODT [Zofran ODT] 4 mg PO Q6H #60 tab.rapdis 12/19/17 [Rx] Pantoprazole [Protonix] 40 mg PO BID 30 Days #60 tab 12/19/17 [Rx] Sucralfate [Carafate] 1 gm PO QIDAC #120 tablet 12/19/17 [Rx] Allergies/Adverse Reactions: 3 Allergy/AdvReac Type Severity Reaction Status Date / Time ondansetron Allergy Nausea Verified 12/17/17 21:07 Date of admission: 12/18/17 03:33 Primary care physician: PCP NONE Consults: 12/18/17 06:49 Consult to Surgery [CONS] Routine Consulting Provider: [facility] Reason for Consult: GI bleed Call Completed: Yes Discharging clinician: Meera Gloria Anticipated date of discharge: 12/19/17 - Constitutional Vitals: Temp Pulse Resp BP Pulse Ox 97.6 F 72 17 119/81 97 12/19/17 15:35 12/19/17 15:35 12/19/17 15:35 12/19/17 15:35 12/19/17 15:35 General appearance: Present: cachectic, cooperative, A&O X 3, pleasant, no acute distress, answers questions appropriately - Head Head exam: Present: atraumatic, normal inspection, normocephalic - Eye Eye exam: Present: normal appearance, conjuntiva pink, sclera anicteric - Neck Neck exam general surgery: Present: supple, trachea midline. Absent: lymphadenopathy - Respiratory Respiratory exam: Present: CTAB. Absent: accessory muscle use, rales, rhonchi, wheezes - Cardiovascular Cardiovascular exam: Present: RRR, +S1, +S2. Absent: diastolic murmur, gallop, rubs, systolic murmur - GI/Abdominal GI/Abdominal exam: Present: normal bowel sounds, soft, tenderness. Absent: distended, firm, hepatomegaly, mass, rigid - Extremities Exam Extremities exam: Present: normal inspection, warm, radial pulses palpable and symmetrical. Absent: calf tenderness, cyanotic, pedal edema, tenderness - Neurological Exam Neurological exam: Present: alert, oriented X3, no focal deficits. Absent: facial droop, speech deficit - Skin Skin exam: Present: dry, intact, normal color, warm. Absent: rash - Patient Status Disposition: Home, Self-Care Condition: Good Functional capacity at discharge: independent ambulation Overall status at discharge: patient is progressing back to baseline - Discharge Instructions Follow Up With: NONE,PCP [Primary Care Provider] - Additional Instructions: Follow up with GI as scheduled. Please use the phone number provided to find a PCP. Your new presciptions are at your pharmacy. Return to the ER as needed for any other problems or concerns. Resume your other medications and return to your normal diet and activities as tolerated. - Diet and Activity Activity: increase activity as tolerated Diet: advance to your usual diet
== END 2017-12-19 17:01 | disposition home or self-care (01) | DRG 241 ==
LOC: 3BNU 20:52 → EMEROO 20:52 → 3BNU 12-18 02:40
PROVIDERS: ADMIT Pediatrics; ATTEND Registered Nurse